=== PATIENT | male | born 1980 | race Two or more races ===

== ENCOUNTER → 2017-06-06 | Outpatient (CLI) | payer OTHER ==
[~2017-06-06] MED LIST: IOHEXOL 240 MG/ML 50ML VIAL. ONE; IOHEXOL 240 MG/ML 50ML VIAL. PO ONE; IOHEXOL 300 MG/ML 75 ML VIAL. IV ONE; IOHEXOL 300 MG/ML 75 ML VIAL. ONE
--- NOTE | 2017-06-06 15:27 | RAD ---
Indication rectal bleeding. Hematuria. Axial images through the abdomen and pelvis were obtained. A limited amount of oral contrast was administered. IV. Initial non-IV contrast images were obtained. Subsequently contrast images were obtained. Approximately 75 cc of Omnipaque 300 was administered. Note is made of a previous examination September 02, 2012. The lung bases are clear. Tubing, probably reflecting ELEVATOR SERVICE TECHNICIAN shunt tubing is noted. There is fatty infiltration of the liver. A focal mass lesion in the liver as is not seen. The spleen appears unremarkable. There is a small hiatus hernia. The pancreas appears normal. There are no adrenal masses. No renal mass is seen on either side. There are extrarenal pelves bilaterally. There is mild hydroureter, particularly involving the proximal portion of the kidneys. This is likely secondary to a moderately distended urinary bladder. A small bladder diverticulum is noted off the left fundus. A mass inflammatory process or acute finding within the abdomen is not seen. IMPRESSION: No acute findings seen in the abdomen or pelvis. Extrarenal pelves bilaterally and mild bilateral hydroureter likely secondary to distended urinary bladder. Fatty infiltration of the liver. PQRS Compliance Statement: One or more of the following individualized dose reduction techniques were utilized for this examination: 1. Automated exposure control 2. Adjustment of the mA and/or kV according to patient size 3. Use of iterative reconstruction technique
== END | disposition home or self-care (01) ==
LOC: CT 12:37
PROVIDERS: ATTEND Family Medicine
DX: N32.3 Diverticulum of bladder (principal); K44.9 Diaphragmatic hernia without obstruction or gangrene; K76.0 Fatty (change of) liver, not elsewhere classified; N13.4 Hydroureter; K62.5 Hemorrhage of anus and rectum
CPT/HCPCS: 74178; Q9966; Q9967

== ENCOUNTER → 2017-06-09 | Outpatient (CLI) | payer OTHER ==
--- NOTE | 2017-06-09 17:06 | RAD ---
Indication: Dyspnea on exertion. Time of exam 1657 hours. Correlation is made with prior study from 09/05/2012. The heart size is stable. The lungs are clear. Pulmonary vascularity is normal. No infiltrate, effusion or pneumothorax is seen. Tubing overlies bilateral hemithoraces. Impression: No acute cardiopulmonary process is detected.
== END ==
LOC: RAD 16:32
PROVIDERS: ATTEND Specialist
DX: R06.9 Unspecified abnormalities of breathing (principal)
CPT/HCPCS: 71020

== ENCOUNTER → 2017-08-01 | Outpatient (CLI) | payer OTHER ==
[~2017-08-01] MED LIST changes: -IOHEXOL 240 MG/ML 50ML VIAL. ONE; -IOHEXOL 240 MG/ML 50ML VIAL. PO ONE; -IOHEXOL 300 MG/ML 75 ML VIAL. ONE
== END | disposition home or self-care (01) ==
LOC: CT 12:42
PROVIDERS: ATTEND Internal Medicine Cardiovascular Disease
DX: Z53.8 Procedure and treatment not carried out for other reasons (principal)
CPT/HCPCS: Q9967

== ENCOUNTER → 2017-08-11 | Outpatient (CLI) | payer OTHER ==
--- NOTE | 2017-08-11 14:50 | RAD ---
INDICATION: DYSPNEA COMPARISON: 06/09/2017 FINDINGS: 2 views of chest obtained. Cardiac silhouette is mildly prominent in size but similar to prior. Repeat demonstration of tubing coursing down the chest bilaterally. No definite new region of focal airspace consolidation. IMPRESSION: No focal airspace consolidation or edema.
== END | disposition home or self-care (01) ==
LOC: DXRAD 13:22
PROVIDERS: ATTEND Internal Medicine Cardiovascular Disease
DX: R06.09 Other forms of dyspnea (principal)
CPT/HCPCS: 71046

== ENCOUNTER → 2017-08-15 | Outpatient (CLI) | payer OTHER ==
--- NOTE | 2017-08-15 15:10 | RAD ---
CT pulmonary angiogram with intravenous contrast History: Shortness of breath on exertion. Comparison: None. Technique: CT angiogram of the chest with attention to the pulmonary arteries was performed after the administration of intravenous contrast, 62 mL Omnipaque-300. Axial 2-D reconstructions were obtained. Coronal 3-D MIPS were obtained of the chest. Exposure: One or more of the following individualized dose reduction techniques were utilized for this examination: 1. Automated exposure control 2. Adjustment of the mA and/or kV according to patient size 3. Use of iterative reconstruction technique Findings: There is poor opacification of pulmonary arteries. No central pulmonary embolism is identified. Cannot evaluate for lobar or smaller pulmonary embolism. Trachea and mainstem bronchi appear patent. Visualized thyroid appears symmetric. No acute airspace disease is identified. No pneumothorax or pleural effusion is seen. No mediastinal lymphadenopathy is seen. Thoracic aorta has normal caliber and is without evidence of dissection.. Heart and pericardium are unremarkable. Anterior chest subcutaneous soft tissues demonstrate vertical linear densities, may be WORKSHOP MANAGER shunts. Severe fatty liver disease is seen. Impression: 1. Significantly limited examination. No central pulmonary embolism is identified. Cannot evaluate for lobar or smaller pulmonary embolism. 2. No acute abnormality identified in the chest. Electronically signed by: Benjamin Bailey MD (08/15/2017 3:07 PM) [place] [id number]
== END | disposition home or self-care (01) ==
LOC: CT 13:16
PROVIDERS: ATTEND Internal Medicine Cardiovascular Disease
DX: R06.09 Other forms of dyspnea (principal)
CPT/HCPCS: 71275

== ENCOUNTER → 2017-08-25 | Outpatient (CLI) | payer OTHER | END | disposition home or self-care (01) | LOC: LAB 14:18 | PROVIDERS: ATTEND Internal Medicine Cardiovascular Disease | DX: R00.2 Palpitations (principal) | CPT/HCPCS: 84443 ==

== ENCOUNTER 2018-11-19 11:40 | Inpatient (IN) | payer OTHER ==
[~2018-11-19] VITALS: Ht 167.6 cm; Wt 101.2 kg
--- NOTE | 2018-11-19 12:13 | RAD ---
AP chest, 11/19/2018: HISTORY: Shortness of breath Comparison is made to a study from 08/11/2017. A left-sided transvenous pacemaker has been inserted with 2 leads extending into the right heart. Tubing overlying both sides of the chest is again noted, most likely represent TODDLER NANNY shunt tubes. The heart size and pulmonary vascularity are normal. No pulmonary infiltrate is seen. There is no evidence of pleural fluid. IMPRESSION: No acute cardiopulmonary abnormality is detected. Electronically signed by: Michael De Guzman MD (11/19/2018 12:11 PM) [facility]
--- NOTE | 2018-11-19 12:24 | PHYS DOC ---
Past History Past Medical History: UTI, Other Past Surgical History: Other Alcohol Use: None Drug Use: None Adult General Chief Complaint Chief Complaint: CHEST PAIN [facility] HPI 38-year-old male presents with chest pain and palpitations. The patient states that after he woke up around 7 AM he began to have a feeling of his heart racing and central chest pressure. The pressure was a 5 out of 10. It has improved at this time, but is intermittent. Patient states that it hurts worse with deep breathing. He does feel short of breath but denies diaphoresis. The patient has an on demand pacemaker. He has a history of spina bifida. At this time, the patient states he just feels weak overall and he has some chest pain with breathing. Patient also seemed to have a right-sided facial droop prior to EMS arrival. This was confirmed by his family which accompany him. This has resolved at this time. Patient denies headache. He has CLIENT TECHNOLOGIES SPECIALIST shunt on the right knee on the left. Patient measured a fever of 102 at home, but had normal temperature in the ED. He did not take any medications for his fever. Review of Systems Review of Systems Constitutional: Fever, fatigue.[] Eyes: Denies change in visual acuity, redness, or eye pain [] HENT: Denies nasal congestion or sore throat [] Respiratory: Shortness of breath. Denies cough. [] Cardiovascular: No additional information not addressed in HPI [] GI: Denies abdominal pain, nausea, vomiting, bloody stools or diarrhea [] : Denies dysuria or hematuria [] Musculoskeletal: Denies back pain or joint pain [] Integument: Denies rash or skin lesions [] Neurologic: Denies headache, focal weakness or sensory changes [] Endocrine: Denies polyuria or polydipsia [] All other systems were reviewed and found to be within normal limits, except as documented in this note. Allergies Allergies Allergies Coded Allergies Type Severity Reaction Last Updated Verified amoxicillin Allergy Unknown 11/19/18 Yes cefaclor Allergy Unknown 11/19/18 Yes latex Allergy Unknown 11/19/18 Yes Physical Exam Physical Exam Constitutional: Well developed, well nourished, no acute distress, non-toxic appearance. [] HENT: Normocephalic, atraumatic, bilateral external ears normal, oropharynx moist, no oral exudates, nose normal. [] Eyes: PERRLA, EOMI, conjunctiva normal, no discharge. [] Neck: Normal range of motion, no tenderness, supple, no stridor. [] Cardiovascular:Heart rate regular rhythm, no murmur [] Lungs & Thorax: Bilateral breath sounds clear to auscultation [] Abdomen: Bowel sounds normal, soft, no tenderness, no masses, no pulsatile masses. [] Skin: Warm, dry, no erythema, no rash. [] Back: No tenderness, no CVA tenderness. [] Extremities: No tenderness, no cyanosis, no clubbing, ROM intact, no edema. [] Neurologic: Alert and oriented X 3, normal motor function, normal sensory function, no focal deficits noted. [] Psychologic: Affect normal, judgement normal, mood concerned. [] Current Patient Data Vital Signs Vital Signs Date Time Temp Pulse Resp B/P (MAP) Pulse Ox O2 Delivery O2 Flow Rate FiO2 11/19/18 11:45 98.7 100 20 95 Room Air EKG EKG Sinus rhythm, rate 99, normal axis, no ST elevations or depressions.[] Radiology/Procedures Radiology/Procedures [] Impressions: AP chest, 11/19/2018: HISTORY: Shortness of breath Comparison is made to a study from 08/11/2017. A left-sided transvenous pacemaker has been inserted with 2 leads extending into the right heart. Tubing overlying both sides of the chest is again noted, most likely represent CLIENT TECHNOLOGIES SPECIALIST shunt tubes. The heart size and pulmonary vascularity are normal. No pulmonary infiltrate is seen. There is no evidence of pleural fluid. IMPRESSION: No acute cardiopulmonary abnormality is detected. Electronically signed by: Michael Andrade MD (11/19/2018 12:11 PM) [facility] DICTATED AND SIGNED BY: MICHAEL ANDRADE MD DATE: 11/19/18 1211 CC: NEENA NOYOLA DO; RODY BENITES MD ~ CT HEAD WO CONTRAST History: Facial droop this a.m., has since resolved, history of Chiari malformation Comparison: December 05, 2011 Technique: Noncontrast CT imaging was performed of the head. Exposure: One or more of the following individualized dose reduction techniques were utilized for this examination: 1. Automated exposure control 2. Adjustment of the mA and/or kV according to patient size 3. Use of iterative reconstruction technique. Findings: There is again right transparietal shunt with the tip terminating to the left of the midline in the region of the anterior left lateral ventricle. There is now left transfrontal shunt, tip terminating just to the right of midline in the anterior right lateral ventricle. There is no evidence of acute intracranial hemorrhage. 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 Left ventricle is smaller than previously, no evidence of hydrocephalus. There is no new intra-axial mass effect or midline shift. 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 Impression: 1. There are left transfrontal and right transparietal shunts as described, no evidence of hydrocephalus. Ventricles are small in size. 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 No acute intracranial abnormality is identified by CT. Electronically signed by: Ina Lynch MD (11/19/2018 12:38 PM) [id number] DICTATED AND SIGNED BY: INA LYNCH MD DATE: 11/19/18 1238 CC: NEENA NOYOLA DO; RODY BENITES MD ~ Course & Med Decision Making Course & Med Decision Making Pertinent Labs and Imaging studies reviewed. (See chart for details) The patient's chest x-ray is negative for acute findings. His labs are unremarkable. His troponin is negative. His head CT is negative for acute findings. He continues to have some chest discomfort. He has been given 324 of aspirin. The patient appears dry as well as give him some additional IV fluids and Zofran for his nausea. Follow with Dr. Benites and he has agreed to admit the patient for further management. [] Dragon Disclaimer Dragon Disclaimer This electronic medical record was generated, in whole or in part, using a voice recognition dictation system. Departure Departure: Impression: Primary Impression: Chest pain Condition: STABLE Referrals: RODY BENITES MD (PCP) Problem Qualifiers Primary Impression: Chest pain Chest pain type: chest pain on breathing Qualified Codes: R07.1 - Chest pain on breathing NEENA NOYOLA DO Nov 19, 2018 12:24
[2018-11-19 12:36] LABS: BASO # 0.1 x10^3/uL (0.0-0.2); BASO % 1 % (0-3); EOS % 0 % (0-3); HEMATOCRIT 46.5 % (39.0-53.0); HEMOGLOBIN 15.8 g/dL (13.0-17.5); LYMPH # 0.9 x10^3/uL (1.0-4.8); LYMPH % 6 % (24-48); MEAN CORPUSCULAR HEMOGLOBIN 30 pg (25-35); MEAN CORPUSCULAR HGB CONC 34 g/dL (31-37); MEAN CORPUSCULAR VOLUME 89 fL (79-100); MONO % 6 % (0-9); NEUT # 15.2 x10^3uL (1.8-7.7); NEUT % 88 % (31-73); PLATELET COUNT 239 x10^3/uL (140-400); RED BLOOD COUNT 5.22 x10^6/uL (4.30-5.70); RED CELL DISTRIBUTION WIDTH 12.9 % (11.5-14.5); WHITE BLOOD COUNT 17.2 x10^3/uL (4.0-11.0)
--- NOTE | 2018-11-19 12:41 | RAD ---
CT HEAD WO CONTRAST History: Facial droop this a.m., has since resolved, history of Chiari malformation Comparison: December 05, 2011 Technique: Noncontrast CT imaging was performed of the head. Exposure: One or more of the following individualized dose reduction techniques were utilized for this examination: 1. Automated exposure control 2. Adjustment of the mA and/or kV according to patient size 3. Use of iterative reconstruction technique. Findings: There is again right transparietal shunt with the tip terminating to the left of the midline in the region of the anterior left lateral ventricle. There is now left transfrontal shunt, tip terminating just to the right of midline in the anterior right lateral ventricle. There is no evidence of acute intracranial hemorrhage. 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 Left ventricle is smaller than previously, no evidence of hydrocephalus. There is no new intra-axial mass effect or midline shift. 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 Impression: 1. There are left transfrontal and right transparietal shunts as described, no evidence of hydrocephalus. Ventricles are small in size. 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 No acute intracranial abnormality is identified by CT. Electronically signed by: Kamron Lacey MD (11/19/2018 12:38 PM) [id number]
[2018-11-19 12:52] LABS: CALCIUM 9.4 mg/dL (8.5-10.1); CREATININE 1.1 mg/dL (0.7-1.3); GFR 74.9; POTASSIUM 3.8 mmol/L (3.5-5.1); TOTAL BILIRUBIN 0.8 mg/dL (0.2-1.0); TOTAL PROTEIN 8.2 g/dL (6.4-8.2)
[2018-11-19 13:10] LABS: BILIRUBIN,URINE NEG (NEG); CLARITY,URINE HAZY; COLOR,URINE YELLOW; GLUCOSE,URINE NEG (NEG)
[2018-11-19 13:11] LABS: BACTERIA,URINE FEW /HPF (0-FEW); NITRITE,URINE NEG (NEG); SQUAMOUS EPITHELIAL CELL,UR OCC /LPF; UROBILINOGEN,URINE 0.2 mg/dL (0.2 mg/dL)
[2018-11-19 13:21] LABS: % BANDS 2 % (0-9); % LYMPHS 6 % (24-48); % MONOS 7 % (0-10); % SEGS 85 % (35-66)
[2018-11-19 13:22] LABS: PLT ESTIMATE ADEQUATE (ADEQUATE)
[2018-11-19] MEDS ORDERED: IV NORMAL SALINE 1,000ML 1,000 ML IV ONE (14:00)
[2018-11-19] MEDS ORDERED: LIDO:MAALOX 1:1 20 ML SINGLE DOSE. PO ONE (14:00)
[2018-11-19] MEDS ORDERED: ONDANSETRON PF 4 MG/2 ML VIAL. IV PRN ×2 (14:00→20:30)
[2018-11-19] MEDS ORDERED: NITROGLYCERIN SUBLINGUAL 0.4 MG BOTTLE OF 25. SL PRN (14:00)
[2018-11-19] MEDS ORDERED: ONDANSETRON PF 4 MG/2 ML VIAL. IV ONE (14:00)
[2018-11-19] MEDS ORDERED: ASPIRIN 81 MG TAB.CHEW PO ONE (14:00)
[2018-11-19 14:28] LABS: INFLUENZA A PATIENT NEGATIVE (NEGATIVE); INFLUENZA B PATIENT NEGATIVE (NEGATIVE)
--- NOTE | 2018-11-19 14:47 | EKG ---
[address] [address] Test Date: 2018-11-19 Test Time: 12:00:17 Pat Name: [address] Department: Room: Gender: M Regulatory Coordinator: : 1980 Requested By: NEENA NOYOLA Order Number: [id number] Reading MD: Apollo Carlos Measurements Intervals [place] Rate: 99 P: 27 IA: 188 QRS: 70 QRSD: 92 T: 28 QT: 308 QTc: 395 Interpretive Statements SINUS RHYTHM Electronically Signed On 11-26-2018 12:59:08 CDT by Apollo Carlos
[2018-11-19 16:07] VITALS: BP 115/79
[2018-11-19] MEDS ORDERED: PANT40TA5 PO (18:37)
[2018-11-19 19:57] VITALS: BP_SYST 136
[2018-11-19 19:59] VITALS: BP 128/63
[2018-11-19] MEDS ORDERED: HYDROcodone/APAP 5/325MG 1 TAB TABLET PO PRN (20:15)
[2018-11-19] MEDS ORDERED: VANCOMYCIN PER PHARMACY MC PRN (20:30)
[2018-11-19] MEDS ORDERED: ACETAMINOPHEN 500 MG TABLET PO PRN (20:30)
[2018-11-19] MEDS ORDERED: ZOLPIDEM 5 MG TABLET. PO PRN (20:30)
[2018-11-19 23:00] VITALS: BP 132/78
[2018-11-20 06:06] VITALS: BP 119/72
--- NOTE | 2018-11-20 08:56 | PDOC2 ---
CONSULT Date of Admission DATE: 11/20/18 TIME: 08:52 Reason for Consult: CP Problem List Problems Medical Problems: (1) Chest pain Status: Acute History of Present Illness Mr Booth is a 38 year old male with history of spina bifida, GERD and urinary retention with self cath, presented to the ED with complaints of chest pain, and fever. He describes pain in his chest, center and right and left sternal borders that started yesterday. Pain was worse with movement and deep inspiration. He also reported a fever so decided to present for evaluation and was admitted for evaluation and treatment. Consult was called to evaluate chest pain. He reports that his pain is significantly improved today but still occurs with deep inspiration. He also reports increased pain with palpation of chest wall. He denies any congestive symptoms, palpitations, lightheadedness or syncope. He denies any symptoms of infection other than fever at home. He was apparently afebrile in the ED Past Medical History hearing loss right ear spina bifida GERD urinary retention with self cath Past Surgical History: Tonsillectomy, Other (left transfrontal and right transparietal shunts) Family History: Cancer, Diabetes, Other (atrial fibrillation) Social History non smoker, no etoh or illicit drugs Current Medications Current Medications Aspirin (Children'S Aspirin) 324 mg 1X ONCE PO Last administered on 11/19/18at 14:09; Start 11/19/18 at 14:00; Stop 11/19/18 at 14:01; Status DC Sodium Chloride 1,000 ml @ 1,000 mls/hr 1X ONCE IV Last administered on at 14:06; Start 11/19/18 at 14:00; Stop 11/19/18 at 14:59; Status DC Ondansetron HCl (Zofran) 4 mg 1X ONCE IV Last administered on 11/19/18at 14:08 ; Start 11/19/18 at 14:00; Stop 11/19/18 at 14:01; Status DC Multi-Ingredient Mouthwash/Gargle (Gi Cocktail) 20 ml 1X ONCE PO Last administered on 11/19/18at 14:11; Start 11/19/18 at 14:00; Stop 11/19/18 at 14:01 ; Status DC Ondansetron HCl (Zofran) 4 mg PRN Q4HRS PRN IV NAUSEA/VOMITING; Start 11/19/18 at 14:00; Stop 11/20/18 at 13:59 Nitroglycerin (Nitrostat) 0.4 mg PRN Q5MIN PRN SL CHEST PAIN; Start 11/19/18 at 14:00; Stop 11/20/18 at 13:59 Acetaminophen/ Hydrocodone Bitart (Lortab 5/325) 1 tab PRN Q6HRS PRN PO PAIN Last administered on 11/19/18at 21:00; Start 11/19/18 at 20:15 Vancomycin HCl (Vanco Per Pharmacy) 1 each PRN DAILY PRN MC SEE COMMENTS; Start 11/19/18 at 20:30 Levofloxacin/ Dextrose 150 ml @ 150 mls/hr Q24H IV Last administered on at 21:00; Start 11/19/18 at 21:00 Pantoprazole Sodium (Protonix) 40 mg DAILYAC PO ; Start 11/20/18 at 07:30 Ondansetron HCl (Zofran) 4 mg PRN Q6HRS PRN IV NAUSEA/VOMITING; Start 11/19/18 at 20:30 Acetaminophen (Tylenol) 500 mg PRN Q6HRS PRN PO PAIN / TEMP; Start 11/19/18 at 20:30 Zolpidem Tartrate (Ambien) 5 mg PRN QHS PRN PO INSOMNIA; Start 11/19/18 at 20: 30 Vancomycin HCl 2 gm/Sodium Chloride 500 ml @ 250 mls/hr 1X ONCE IV ; Start at 09:00; Stop 11/20/18 at 10:59 Vancomycin HCl 1.5 gm/Sodium Chloride 500 ml @ 250 mls/hr Q12H IV ; Start 11/20 at 21:00 Active Scripts Active Reported Pantoprazole Sodium 40 Mg Tablet. 1 Tab PO DAILY06 Allergies: Coded Allergies: amoxicillin (Verified Allergy, Unknown, 11/19/18) cefaclor (Verified Allergy, Unknown, 11/19/18) latex (Verified Allergy, Unknown, 11/19/18) Review of System as per HPI or negative General: Alert, Oriented X3, Cooperative, No acute distress HEENT: Atraumatic, Mucous membr. moist/pink Lungs: Clear to auscultation, Normal air movement Heart: Normal S1, Normal S2, Other (no gallops, clicks or rubs) Abdomen: Normal bowel sounds, Soft, No tenderness Extremities: No cyanosis, No edema, Normal pulses Neuro: Normal speech, Strength at 5/5 X4 ext Psych/Mental Status: Mood NL VITALS Vital Signs Date Time Temp Pulse Resp B/P (MAP) Pulse Ox O2 Delivery O2 Flow Rate FiO2 11/20/18 06:06 99.5 88 20 119/72 (88) 94 11/20/18 01:22 Room Air Labs Laboratory Tests Test 11/19/18 12:20 11/19/18 12:40 11/19/18 14:01 11/19/18 18:25 White Blood Count 17.2 x10^3/uL (4.0-11.0) Red Blood Count 5.22 x10^6/uL (4.30-5.70) Hemoglobin 15.8 g/dL (13.0-17.5) Hematocrit 46.5 % (39.0-53.0) Mean Corpuscular Volume 89 fL (79-100) Mean Corpuscular Hemoglobin 30 pg (25-35) Mean Corpuscular Hemoglobin Concent 34 g/dL (31-37) Red Cell Distribution Width 12.9 % (11.5-14.5) Platelet Count 239 x10^3/uL (140-400) Neutrophils (%) (Auto) 88 % (31-73) Lymphocytes (%) (Auto) 6 % (24-48) Monocytes (%) (Auto) 6 % (0-9) Eosinophils (%) (Auto) 0 % (0-3) Basophils (%) (Auto) 1 % (0-3) Neutrophils # (Auto) 15.2 x10^3uL (1.8-7.7) Lymphocytes # (Auto) 0.9 x10^3/uL (1.0-4.8) Monocytes # (Auto) 1.0 x10^3/uL (0.0-1.1) Eosinophils # (Auto) 0.0 x10^3/uL (0.0-0.7) Basophils # (Auto) 0.1 x10^3/uL (0.0-0.2) Segmented Neutrophils % 85 % (35-66) Band Neutrophils % 2 % (0-9) Lymphocytes % 6 % (24-48) Monocytes % 7 % (0-10) Platelet Estimate Adequate (ADEQUATE) Large Platelets Occ Sodium Level 137 mmol/L (136-145) Potassium Level 3.8 mmol/L (3.5-5.1) Chloride Level 101 mmol/L (98-107) Carbon Dioxide Level 26 mmol/L (21-32) Anion Gap 10 (6-14) Blood Urea Nitrogen 14 mg/dL (8-26) Creatinine 1.1 mg/dL (0.7-1.3) Estimated GFR (Cockcroft-Gault) 74.9 BUN/Creatinine Ratio 13 (6-20) Glucose Level 114 mg/dL (70-99) Calcium Level 9.4 mg/dL (8.5-10.1) Total Bilirubin 0.8 mg/dL (0.2-1.0) Aspartate Amino Transf (AST/SGOT) 26 U/L (15-37) Alanine Aminotransferase (ALT/SGPT) 59 U/L (16-63) Alkaline Phosphatase 76 U/L (46-116) Troponin I Quantitative < 0.017 ng/mL (0-0.055) < 0.017 ng/mL (0-0.055) Total Protein 8.2 g/dL (6.4-8.2) Albumin 4.0 g/dL (3.4-5.0) Albumin/Globulin Ratio 1.0 (1.0-1.7) Urine Collection Type Unknown Urine Color Yellow Urine Clarity Hazy Urine pH 8.0 Urine Specific [place] 1.015 Urine Protein Neg (NEG-TRACE) Urine Glucose (UA) Neg mg/dL (NEG) Urine Ketones (Stick) Neg mg/dL (NEG) Urine Blood Trace (NEG) Urine Nitrite Neg (NEG) Urine Bilirubin Neg (NEG) Urine Urobilinogen Dipstick 0.2 mg/dL (0.2 mg/dL) Urine Leukocyte Esterase Small (NEG) Urine RBC 6-10 /HPF (0-2) Urine WBC 5-10 /HPF (0-4) Urine Squamous Epithelial Cells Occ /LPF Urine Bacteria Few /HPF (0-FEW) Influenza Type A (Rapid) Negative (NEGATIVE) Influenza Type B (Rapid) Negative (NEGATIVE) Test 11/19/18 20:30 Troponin I Quantitative < 0.017 ng/mL (0-0.055) Images CT head - Impression: 1. There are left transfrontal and right transparietal shunts as described, no evidence of hydrocephalus. Ventricles are small in size. 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 No acute intracranial abnormality is identified by CT. CXR - IMPRESSION: No acute cardiopulmonary abnormality is detected. EKG - sinus rhythm, no acute ischemic changes Assessment/Plan 1. chest pain, atypical, ME ruled out. EKG without acute ischemic changes. Check echo, lipids, consider outpatient MPI. If not acute abn on echo ok for discharge home with outpatient follow up. 2. UTI- per PCP 3. PPM in place - interrogation. 4. TIA - neuro consulted ALICIA RATLIFF FINISH GRINDER Nov 20, 2018 08:56
[2018-11-20] MEDS ORDERED: VANCOMYCIN 2 GM in IV NORMAL SALINE 500ML 500 ML IV ONE (09:00)
[2018-11-20] MEDS: PANTOPRAZOLE 40 MG TABLET. PO SCH (09:11)
--- NOTE | 2018-11-20 09:57 | CARD ---
MR#: [id number] Date of Study: 11/20/2018 Ordering Physician: FREDDY HEART, Referring Physician: RODY BENITES, Tech: Shelia Bolden RDCS APPROVED REPORT EXAM: Two-dimensional and M-mode echocardiogram with Doppler and color Doppler. Other Information Quality : Good INDICATION Chest Pain Surgery/Intervention Pacemaker: Date: 2017 2D DIMENSIONS RVDd3.0 (2.9-3.5cm)Left Atrium(2D)3.9 (1.6-4.0cm) IVSd1.1 (0.7-1.1cm)Aortic Root(2D)2.8 (2.0-3.7cm) LVDd5.0 (3.9-5.9cm)LVOT Diameter2.1 (1.8-2.4cm) PWd1.1 (0.7-1.1cm)LVDs3.2 (2.5-4.0cm) FS (%) 35.9 %SV76.2 ml LVEF(%)65.2 (>50%) Aortic Valve AoV Peak Terry.95.8cm/sAoV VTI16.1cm AO Peak GR.3.7mmHgAO Mean GR.2mmHg IZZY (VTI)2.99cm2 Mitral Valve MV E Ospfvyon38.8cm/sMV DECEL [id number] MV A Edtkorqi14.8cm/sE/A Ratio1.1 LEFT VENTRICLE The left ventricle is normal size. There is normal left ventricular wall thickness. The left ventricu lar systolic function is normal. The Ejection Fraction is 60-65%. There is normal LV segmental wall m otion. The left ventricular diastolic function and filling is normal for age. RIGHT VENTRICLE The right ventricle is normal size. The right ventricular systolic function is normal. ATRIA The left atrium size is normal. The right atrium size is normal. The interatrial septum is intact wit h no evidence for an atrial septal defect or patent foramen ovale as noted on 2-D or Doppler imaging. AORTIC VALVE The aortic valve is normal in structure and function. Doppler and Color Flow revealed no significant aortic regurgitation. There is no significant aortic valvular stenosis. MITRAL VALVE The mitral valve is normal in structure and function. There is no evidence of mitral valve prolapse. There is no mitral valve stenosis. Doppler and Color-flow revealed trace mitral regurgitation. TRICUSPID VALVE The tricuspid valve is normal in structure and function. Doppler and Color Flow revealed no tricuspid valve regurgitation noted. There is no tricuspid valve stenosis. PULMONIC VALVE The pulmonic valve is not well visualized. Doppler and Color Flow revealed no pulmonic valvular regur gitation. There is no pulmonic valvular stenosis. GREAT VESSELS The aortic root is normal in size. The ascending aorta is normal in size. The IVC is normal in size a nd collapses >50% with inspiration. PERICARDIAL EFFUSION There is no evidence of significant pericardial effusion. Critical Notification Critical Value: No <Conclusion> The left ventricular systolic function is normal. The Ejection Fraction is 60-65%. There is normal LV segmental wall motion. Trace mitral regurgitation. There is no evidence of significant pericardial effusion. Signed by : Apollo Carlos, Electronically Approved : 11/20/2018 09:56:45
[2018-11-20 10:58] VITALS: BP 117/72
[2018-11-20 15:21] VITALS: BP 126/75
--- NOTE | 2018-11-20 16:15 | EKG ---
[address] [address] Test Date: 2018-11-20 Test Time: 11:43:03 Pat Name: [address] Department: Room: 119 A Gender: M College Admissions Counselor: RYLIE : 1980 Requested By: RODY BENITES Order Number: [id number] Reading MD: Apollo Carlos Measurements Intervals [place] Rate: 81 P: 0 [place]: 194 QRS: 51 QRSD: 92 T: 27 QT: 346 QTc: 402 Interpretive Statements SINUS RHYTHM NORMAL ECG Electronically Signed On 11-26-2018 13:05:34 CDT by Apollo Carlos
[2018-11-20 19:12] VITALS: BP 147/87
--- NOTE | 2018-11-20 19:26 | HP ---
ADMIT DATE: 11/20/2018 HISTORY OF PRESENT ILLNESS: A 38-year-old male with a history of cerebral palsy. The patient noted his heart was racing, had chest pressure 5/10. He knows he had deep breathing. Denies diaphoresis, history of spina bifida, feels weak all over, chest pain, elevated temperature of 102, also had an elevated white count of 17,000, 6-10 red blood cells in his urine. The patient was admitted for possible SIRS. Further evaluation as treated with IV antibiotic therapy. He did running temperature of 99.8 along with his pulse of 108. PAST MEDICAL HISTORY: Includes spina bifida. 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 He has had GERD, genital urinary disorders, multiple urinary retention and self caths himself. PAST MEDICAL HISTORY: Positive for diabetes, cancer of the genital organs, chronic atrial fibrillation. ALLERGIES: AMOXICILLIN, CEFACLOR, and LATEX. MEDICATIONS: Reconciled. Apparently, he only takes one Protonix 40 mg a day. FAMILY HISTORY: Mother with diabetes and AFib, father with cancer of the genital organs probably prostate. SOCIAL HISTORY: The patient is a full code. Denies smoking, alcohol or drug use. REVIEW OF SYSTEMS: The patient denies any recent weight loss, weight gain, change in bowel habits. Denies any headaches, visual changes, blurred vision, double vision. Denies chest pain, shortness of breath. Does have problems with abdominal pain, problems on urination. Neurologically, the patient is stable. Does have occasional possible seizure activity and is to be evaluated. PHYSICAL EXAMINATION: GENERAL: This is a pleasant white male in moderate amount of distress, cerebral palsy. VITAL SIGNS: Blood pressure 120/72, respiratory rate 20, pulse 80, afebrile, temperature of 99.5. HEENT: The patient's head was atraumatic, normocephalic. Eyes: PERRLA without jaundice. The mouth and throat were normal. NECK: Supple, no JVD, or thyromegaly. LUNGS: Diminished throughout, poor movement of air. CARDIOVASCULAR: Regular sinus rhythm, S1, S2. ABDOMEN: Soft, nontender. EXTREMITIES: No clubbing, cyanosis or edema. NEUROLOGIC: The patient was alert and oriented x 3. Speech is fluent, spontaneous and appropriate. Cranial nerves 2-12 grossly intact. The patient will be admitted for further evaluation and treatment. IMPRESSION: Chest pain, leukocytosis, spina bifida, urinary tract infection, possible transient ischemic attack. PLAN: As above. Continue to monitor the patient accordingly, make further evaluation on him. Continue on antibiotics for elevated white count and high risk for infection. RODY BENITES MD DR: HAYLEY/inocencia JOB#: [id number] / [id number]
[2018-11-20] MEDS: LACTOBACILLUS RHAMNOSUS GG 1 CAPSULE. PO SCH (20:37)
[2018-11-20 23:07] VITALS: BP 144/88
[2018-11-20] MEDS: VANCOMYCIN 1.5 GM in IV NORMAL SALINE 500ML 500 ML IV SCH (23:21)
--- NOTE | 2018-11-21 03:48 | CONS ---
DATE OF CONSULTATION: 11/20/2018 NEUROLOGICAL CONSULTATION HISTORY OF PRESENT ILLNESS: This is a 38-year-old, right-handed patient male, who has had a history of cerebral palsy and born with spina bifida, required placement of 2 shunt in his head, was admitted through Emergency Room today after he presented with chief complaint of a sudden onset of chest pain associated with shortness of breath and palpitations. He denies diaphoresis, nausea, vomiting or vertigo. The patient states he ran a fever of 102. He has been having intermittent urinary tract infections for several years, required catheterization. In fact, he has been on antibiotics for 10 days for his recurrent urinary tract infections prior to this admission. He also complains of intermittent numbness confined to the right side of the face and right upper extremity and also he describes recurrent spells of strange feeling in the head. On arrival to Emergency Room, head CT scan was performed and revealed no evidence of acute intracranial process, but it shows absence of corpus callosum. He denies history of seizure or any recent loss of consciousness and falls. PAST MEDICAL HISTORY: Significant for recurrent urinary tract infection, GERD, hearing loss. PAST SURGICAL HISTORY: Significant for tonsillectomy, status post bilateral left ventricular shunt placement, status post permanent pacemaker placement. FAMILY HISTORY: Mother had atrial fibrillation, diabetes mellitus and father had prostate cancer. SOCIAL HISTORY: The patient lives with his parents. He denies smoking, alcohol drinking, or illicit drug use. REVIEW OF SYSTEMS: A 10-point review of system was performed as mentioned above in history of present illness. MEDICATIONS: Current hospital medications include vancomycin, Protonix, levofloxacin, Ambien, Tylenol, Zofran. PHYSICAL EXAMINATION: GENERAL: Well-developed, well-nourished male, not in acute distress. VITAL SIGNS: Blood pressure 147/87, respiratory rate 16, pulse is 90, temperature 98.5, oxygen saturation 99% on room air. HEENT: Normocephalic, atraumatic, otherwise, unremarkable. NECK: Supple, negative for carotid bruit, lymphadenopathy or thyromegaly. LUNGS: Clear to A and P. CARDIOVASCULAR: Regular rhythm, normal S1, S2. There is no S3, S4, or murmur. ABDOMEN: Soft. Bowel sounds positive. EXTREMITIES: Negative for cyanosis, clubbing or pitting edema. NEUROLOGIC: Mental status: The patient is alert and oriented x 3. The speech is fluent. There is no language dysfunction. Memory, the patient recalls 2/3 immediately and after 1 and 3 minutes. Judgment and abstract thinking are normal. The patient denies hallucination or delusion. CRANIAL NERVES: Visual castano are full. The pupils are reactive to light and accommodation. The extraocular movements are intact. There is no nystagmus. There is no facial motor or sensory deficit. Hearing is slightly diminished bilaterally. The palate is elevated symmetrically. Sternocleidomastoid muscles are powerful bilaterally. The patient shrugs his shoulders symmetrically and protrudes his tongue in the midline without fasciculation or atrophy. MOTOR: No focal muscle bulk was seen. The tone is normal. The strength is 5/5 throughout. SENSORY EXAMINATION: Sensory examination revealed normal pinprick, light touch, vibratory and position senses. Deep tendon reflexes were symmetric and hypoactive with absent Achilles responses. Gait: The patient has abnormal gait, typical for cerebral palsy. 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 Echocardiogram revealed normal left ventricular systolic function with ejection fraction between 60% and 65% along with mitral regurgitation, otherwise, unremarkable. Chest x-ray revealed no evidence of acute cardiopulmonary process. LABORATORY DATA: CBC revealed white blood cells of 17,200, hemoglobin 15.8, hematocrit 46.5, platelet count 239,000. Chemistry reveals sodium of 137, potassium 3.8, chloride 101, CO2 of 26, BUN 14, creatinine 1.1, glucose 114, calcium 9.4. Liver enzymes are normal. Lipid profile revealed elevated LDL at 135 with total cholesterol of 191. Urinalysis: Small urinary leukocyte esterase with white blood cells of 5-10 and red blood cells of 6-10. IMPRESSION: 1. Chest pain, probably non-cardiac. Cardiology service is following. 2. Rule out transient ischemic attack. 3. Status post permanent pacemaker placement. 4. Possible transient ischemic attack. RECOMMENDATIONS: 1. Continue with current management initiated by Dr. Lewis. 2. Treat the underlying urinary tract infections. 3. Carotid Doppler study. 4. We will arrange for EEG on an outpatient basis. M Gabi DIAL MD DR: DAVID/inocencia JOB#: [id number] / [id number]
[2018-11-21 05:33] VITALS: BP 102/64
[2018-11-21 07:01] LABS: BASO % 1 % (0-3); EOS # 0.1 x10^3/uL (0.0-0.7); EOS % 1 % (0-3); HEMATOCRIT 41.8 % (39.0-53.0); HEMOGLOBIN 14.3 g/dL (13.0-17.5); LYMPH % 22 % (24-48); MEAN CORPUSCULAR HEMOGLOBIN 31 pg (25-35); MEAN CORPUSCULAR HGB CONC 34 g/dL (31-37); MEAN CORPUSCULAR VOLUME 91 fL (79-100); MONO # 0.9 x10^3/uL (0.0-1.1); MONO % 10 % (0-9); NEUT # 6.2 x10^3uL (1.8-7.7); NEUT % 67 % (31-73); PLATELET COUNT 191 x10^3/uL (140-400); RED BLOOD COUNT 4.62 x10^6/uL (4.30-5.70); RED CELL DISTRIBUTION WIDTH 13.2 % (11.5-14.5); WHITE BLOOD COUNT 9.2 x10^3/uL (4.0-11.0)
[2018-11-21 07:22] LABS: CALCIUM 8.6 mg/dL (8.5-10.1); CREATININE 0.9 mg/dL (0.7-1.3); GFR 94.4
[2018-11-21] MEDS: PANTOPRAZOLE 40 MG TABLET. PO SCH (07:44)
[2018-11-21] MEDS: LACTOBACILLUS RHAMNOSUS GG 1 CAPSULE. PO SCH ×2 (07:44→20:53)
[2018-11-21] MEDS: VANCOMYCIN 1.5 GM in IV NORMAL SALINE 500ML 500 ML IV SCH (07:53)
--- NOTE | 2018-11-21 08:38 | RAD ---
Carotid ultrasound, 11/20/2018: HISTORY: Facial drooping Duplex evaluation of the carotid arteries and neck was performed including grayscale, color-flow and spectral Doppler analysis. There is only minimal smooth plaquing at the carotid bifurcations. The peak systolic velocity in the right internal carotid artery is 72 cm per sec with an end-diastolic velocity of 33 cm/s and an internal carotid to common carotid artery ratio of 0.8. The peak systolic velocity in the left internal carotid artery is 86 cm per sec with an end-diastolic velocity of 43 cm/s and an internal carotid to common carotid artery ratio 1.2. These Doppler findings do not suggest significant stenosis. Antegrade flow is present in both vertebral arteries in the neck. IMPRESSION: No duplex evidence of a significant carotid stenosis in the neck. Note: Stenosis calculations for CT, MRA and conventional angiography are based upon determination of the distal ICA diameter in accordance with the NASCET methodology. Stenosis calculations for Doppler studies are derived from validated velocity criteria which are known to correlate with NASCET methodology of determining stenosis. Electronically signed by: Michael De Guzman MD (11/21/2018 8:35 AM) [facility]
--- NOTE | 2018-11-21 10:17 | PDOC ---
ALICIA RATLIFF PRINT PROJECT MANAGER 11/21/18 1017: PROGRESS NOTES Diagnosis Problem Problems Medical Problems: (1) Chest pain Status: Acute Assessment Problems Medical Problems: (1) Chest pain Status: Acute 1. chest pain, atypical - mi ruled out. normal EF and wall motion by echo. Continue RF reduction. OP follow up and consider MPI. 2. UTI- per PCP 3. PPM in place - interrogation reveals normal function, demand pacing, no arrhythmias. 4. TIA - neuro following Subjective no more chest pain, no dyspnea, no palpitations Objective Vital Signs Date Time Temp Pulse Resp B/P (MAP) Pulse Ox O2 Delivery O2 Flow Rate FiO2 11/21/18 08:03 Room Air 11/21/18 05:33 98.1 77 18 102/64 (77) 95 Intake and Output 11/21/18 06:59 Intake Total 2851.12 ml Output Total 2375 ml Balance 476.12 ml Intake Oral 1560 ml IV Total 1291.12 ml Output Urine Total 2375 ml Physical Exam gen: awake, alert, NAD CV: RRR, no gallops, clicks or rubs lungs: clear abd: soft, non tender, bowel sounds present ext: no edema, +pulses Review of Relevant I have reviewed the following items lucio (where applicable) has been applied. Labs Laboratory Tests Test 11/19/18 12:20 11/19/18 12:40 11/19/18 14:01 11/19/18 18:25 White Blood Count 17.2 x10^3/uL (4.0-11.0) Red Blood Count 5.22 x10^6/uL (4.30-5.70) Hemoglobin 15.8 g/dL (13.0-17.5) Hematocrit 46.5 % (39.0-53.0) Mean Corpuscular Volume 89 fL (79-100) Mean Corpuscular Hemoglobin 30 pg (25-35) Mean Corpuscular Hemoglobin Concent 34 g/dL (31-37) Red Cell Distribution Width 12.9 % (11.5-14.5) Platelet Count 239 x10^3/uL (140-400) Neutrophils (%) (Auto) 88 % (31-73) Lymphocytes (%) (Auto) 6 % (24-48) Monocytes (%) (Auto) 6 % (0-9) Eosinophils (%) (Auto) 0 % (0-3) Basophils (%) (Auto) 1 % (0-3) Neutrophils # (Auto) 15.2 x10^3uL (1.8-7.7) Lymphocytes # (Auto) 0.9 x10^3/uL (1.0-4.8) Monocytes # (Auto) 1.0 x10^3/uL (0.0-1.1) Eosinophils # (Auto) 0.0 x10^3/uL (0.0-0.7) Basophils # (Auto) 0.1 x10^3/uL (0.0-0.2) Segmented Neutrophils % 85 % (35-66) Band Neutrophils % 2 % (0-9) Lymphocytes % 6 % (24-48) Monocytes % 7 % (0-10) Platelet Estimate Adequate (ADEQUATE) Large Platelets Occ Sodium Level 137 mmol/L (136-145) Potassium Level 3.8 mmol/L (3.5-5.1) Chloride Level 101 mmol/L (98-107) Carbon Dioxide Level 26 mmol/L (21-32) Anion Gap 10 (6-14) Blood Urea Nitrogen 14 mg/dL (8-26) Creatinine 1.1 mg/dL (0.7-1.3) Estimated GFR (Cockcroft-Gault) 74.9 BUN/Creatinine Ratio 13 (6-20) Glucose Level 114 mg/dL (70-99) Calcium Level 9.4 mg/dL (8.5-10.1) Total Bilirubin 0.8 mg/dL (0.2-1.0) Aspartate Amino Transf (AST/SGOT) 26 U/L (15-37) Alanine Aminotransferase (ALT/SGPT) 59 U/L (16-63) Alkaline Phosphatase 76 U/L (46-116) Troponin I Quantitative < 0.017 ng/mL (0-0.055) < 0.017 ng/mL (0-0.055) Total Protein 8.2 g/dL (6.4-8.2) Albumin 4.0 g/dL (3.4-5.0) Albumin/Globulin Ratio 1.0 (1.0-1.7) Urine Collection Type Unknown Urine Color Yellow Urine Clarity Hazy Urine pH 8.0 Urine Specific Holden 1.015 Urine Protein Neg (NEG-TRACE) Urine Glucose (UA) Neg mg/dL (NEG) Urine Ketones (Stick) Neg mg/dL (NEG) Urine Blood Trace (NEG) Urine Nitrite Neg (NEG) Urine Bilirubin Neg (NEG) Urine Urobilinogen Dipstick 0.2 mg/dL (0.2 mg/dL) Urine Leukocyte Esterase Small (NEG) Urine RBC 6-10 /HPF (0-2) Urine WBC 5-10 /HPF (0-4) Urine Squamous Epithelial Cells Occ /LPF Urine Bacteria Few /HPF (0-FEW) Influenza Type A (Rapid) Negative (NEGATIVE) Influenza Type B (Rapid) Negative (NEGATIVE) Test 11/19/18 20:30 11/20/18 06:04 11/21/18 06:28 Troponin I Quantitative < 0.017 ng/mL (0-0.055) Triglycerides Level 66 mg/dL (0-150) Cholesterol Level 191 mg/dL (0-200) LDL Cholesterol, Calculated 135 mg/dL (0-100) VLDL Cholesterol, Calculated 13 mg/dL (0-40) Non-HDL Cholesterol Calculated 148 mg/dL (0-129) HDL Cholesterol 43 mg/dL (40-60) Cholesterol/HDL Ratio 4.0 Thyroid Stimulating Hormone (TSH) 0.508 uIU/mL (0.358-3.740) White Blood Count 9.2 x10^3/uL (4.0-11.0) Red Blood Count 4.62 x10^6/uL (4.30-5.70) Hemoglobin 14.3 g/dL (13.0-17.5) Hematocrit 41.8 % (39.0-53.0) Mean Corpuscular Volume 91 fL (79-100) Mean Corpuscular Hemoglobin 31 pg (25-35) Mean Corpuscular Hemoglobin Concent 34 g/dL (31-37) Red Cell Distribution Width 13.2 % (11.5-14.5) Platelet Count 191 x10^3/uL (140-400) Neutrophils (%) (Auto) 67 % (31-73) Lymphocytes (%) (Auto) 22 % (24-48) Monocytes (%) (Auto) 10 % (0-9) Eosinophils (%) (Auto) 1 % (0-3) Basophils (%) (Auto) 1 % (0-3) Neutrophils # (Auto) 6.2 x10^3uL (1.8-7.7) Lymphocytes # (Auto) 2.0 x10^3/uL (1.0-4.8) Monocytes # (Auto) 0.9 x10^3/uL (0.0-1.1) Eosinophils # (Auto) 0.1 x10^3/uL (0.0-0.7) Basophils # (Auto) 0.0 x10^3/uL (0.0-0.2) Sodium Level 140 mmol/L (136-145) Potassium Level 4.0 mmol/L (3.5-5.1) Chloride Level 106 mmol/L (98-107) Carbon Dioxide Level 25 mmol/L (21-32) Anion Gap 9 (6-14) Blood Urea Nitrogen 11 mg/dL (8-26) Creatinine 0.9 mg/dL (0.7-1.3) Estimated GFR (Cockcroft-Gault) 94.4 Glucose Level 89 mg/dL (70-99) Calcium Level 8.6 mg/dL (8.5-10.1) Microbiology 11/19/18 Urine Culture - Preliminary, Resulted 11/19/18 Urine Culture Result 1 (MARK) - Preliminary, Resulted Medications Current Medications Aspirin (Children'S Aspirin) 324 mg 1X ONCE PO Last administered on 11/19/18at 14:09; Start 11/19/18 at 14:00; Stop 11/19/18 at 14:01; Status DC Sodium Chloride 1,000 ml @ 1,000 mls/hr 1X ONCE IV Last administered on at 14:06; Start 11/19/18 at 14:00; Stop 11/19/18 at 14:59; Status DC Ondansetron HCl (Zofran) 4 mg 1X ONCE IV Last administered on 11/19/18at 14:08 ; Start 11/19/18 at 14:00; Stop 11/19/18 at 14:01; Status DC Multi-Ingredient Mouthwash/Gargle (Gi Cocktail) 20 ml 1X ONCE PO Last administered on 11/19/18at 14:11; Start 11/19/18 at 14:00; Stop 11/19/18 at 14:01 ; Status DC Ondansetron HCl (Zofran) 4 mg PRN Q4HRS PRN IV NAUSEA/VOMITING; Start 11/19/18 at 14:00; Stop 11/20/18 at 13:59; Status Cancel Nitroglycerin (Nitrostat) 0.4 mg PRN Q5MIN PRN SL CHEST PAIN; Start 11/19/18 at 14:00; Stop 11/20/18 at 13:59; Status DC Acetaminophen/ Hydrocodone Bitart (Lortab 5/325) 1 tab PRN Q6HRS PRN PO PAIN Last administered on 11/19/18at 21:00; Start 11/19/18 at 20:15 Vancomycin HCl (Vanco Per Pharmacy) 1 each PRN DAILY PRN MC SEE COMMENTS Last administered on 11/20/18at 12:47; Start 11/19/18 at 20:30 Levofloxacin/ Dextrose 150 ml @ 150 mls/hr Q24H IV Last administered on at 20:37; Start 11/19/18 at 21:00 Pantoprazole Sodium (Protonix) 40 mg DAILYAC PO Last administered on 11/21/18at 07:44; Start 11/20/18 at 07:30 Ondansetron HCl (Zofran) 4 mg PRN Q6HRS PRN IV NAUSEA/VOMITING; Start 11/19/18 at 20:30 Acetaminophen (Tylenol) 500 mg PRN Q6HRS PRN PO PAIN / TEMP; Start 11/19/18 at 20:30 Zolpidem Tartrate (Ambien) 5 mg PRN QHS PRN PO INSOMNIA; Start 11/19/18 at 20: 30 Vancomycin HCl 2 gm/Sodium Chloride 500 ml @ 250 mls/hr 1X ONCE IV Last administered on 11/20/18at 09:12; Start 11/20/18 at 09:00; Stop 11/20/18 at 10:59 ; Status DC Vancomycin HCl 1.5 gm/Sodium Chloride 500 ml @ 250 mls/hr Q12H IV Last administered on 11/21/18at 07:53; Start 11/20/18 at 21:00 Vancomycin HCl (Vancomycin Trough Level) 1 each 1X ONCE MC ; Start 11/21/18 at 20:30; Stop 11/21/18 at 20:31 Lactobacillus Rhamnosus (Culturelle) 1 cap BID PO Last administered on at 07:44; Start 11/20/18 at 21:00 Active Scripts Active Reported Pantoprazole Sodium 40 Mg Tablet.dr 1 Tab PO DAILY06 Vitals/I & O Vital Sign - Last 24 Hours 11/20/18 11/20/18 11/20/18 11/20/18 10:58 15:21 19:12 19:30 Temp 98.2 99.0 98.5 Pulse 86 93 90 Resp 20 20 16 B/P (MAP) 117/72 (87) 126/75 (92) 147/87 (107) Pulse Ox 93 96 99 O2 Delivery Room Air Room Air Room Air Room Air 11/20/18 11/21/18 11/21/18 23:07 05:33 08:03 Temp 99.1 98.1 Pulse 99 77 Resp 18 18 B/P (MAP) 144/88 (106) 102/64 (77) Pulse Ox 96 95 O2 Delivery Room Air Room Air Room Air Intake and Output 11/20/18 11/20/18 11/21/18 14:59 22:59 06:59 Intake Total 1121.12 ml 630 ml 1100 ml Output Total 1650 ml 725 ml Balance 1121.12 ml -1020 ml 375 ml FREDDY HEART MD 11/21/18 1606: PROGRESS NOTES Review of Relevant Pt. seen and examined. Agree with above ESCALATOR CONSTRUCTOR note. Supportive care. Thanks. Consider outpt MPI if persistent pain. ALICIA RATLIFF PRINT PROJECT MANAGER Nov 21, 2018 10:17 FREDDY HEART MD Nov 21, 2018 16:06
[2018-11-21 11:02] VITALS: BP 123/82
--- NOTE | 2018-11-21 13:35 | PN ---
DATE: 11/21/2018 SUBJECTIVE: The patient denies any recurrence of chest pain; however, on occasions, he complains of intermittent twitching of the face, arms and sometimes drooping of one side of his face. Currently, he denies any new medical or neurological complaints. He drinks and ate well. OBJECTIVE: GENERAL: A well-developed, well-nourished male, not in acute distress. VITAL SIGNS: Blood pressure 102/64, respiratory rate 18, pulse is 77 and regular, temperature 98.1, oxygen saturation is 95% on room air. HEENT: Normocephalic, atraumatic, otherwise unremarkable. NECK: Supple. Negative for carotid bruit, lymphadenopathy or thyromegaly. LUNGS: Clear to A and P. CARDIOVASCULAR: Regular rhythm, normal S1, S2. ABDOMEN: Soft. Bowel sounds positive. EXTREMITIES: Negative for cyanosis, clubbing or pitting edema. NEUROLOGIC: Mental status: The patient is alert and oriented x 3. Speech is fluent. There is no language dysfunction. Cranial nerves are intact. Motor Examination: No focal muscle bulk was seen. The tone is normal. The strength is 5/5 throughout. Sensory examination revealed diminished pinprick and light touch senses in patchy distributions in both upper and lower extremities. Deep tendon reflexes were symmetric and hypoactive with absent Achilles responses. Gait: The patient had cerebral palsy gait. DIAGNOSTIC DATA: Carotid Doppler study revealed no significant carotid stenosis. LABORATORY DATA: CBC revealed white blood cells of 9200, hemoglobin 14.3, hematocrit 41.8, platelet count 191,000. Chemistry: Sodium 140, potassium 4, chloride 106, CO2 of 25, BUN 11, creatinine 0.9, glucose is 89. TSH is normal. IMPRESSION: 1. Intermittent right facial drooping that is resolved. Etiology uncertain, rule out transient ischemic attack. 2. Intermittent twitching of the face or upper extremities. 3. Frequent urinary tract infections. 4. Chest pain -- resolved. 5. Cerebral palsy, status post pacemaker placement, status post 2 ESCROW MANAGER shunts. RECOMMENDATIONS: 1. Continue with current managements. 2. We will arrange for EEG to be done on an outpatient basis. M Gabi DIAL MD DR: DAVID/inocencia JOB#: [id number] / [id number]
[2018-11-21 14:47] VITALS: BP 130/87
--- NOTE | 2018-11-21 15:06 | PN ---
DATE: SUBJECTIVE: The patient in with urinary tract infection, significant. The patient has had problems with he has to self-cath himself. Consequently, he has been having what looks like a pseudomonal infection, got involved in his urinary system. Right now, we are waiting for culture and sensitivity reports. He has ALLERGIES TO PENICILLIN AND CEPHALOSPORIN. His white count has dropped from 17 down to 9. PHYSICAL EXAMINATION: VITAL SIGNS: Blood pressure 102/60, respiratory rate 18, pulse 70, afebrile. Pulse has been up in the upper 90s and 100s. LUNGS: Otherwise lungs clear. CARDIOVASCULAR: Stable. ABDOMEN: Soft, diffuse tenderness, but markedly improved. He has not had a bowel movement. Encouraged to keep walking around. EXTREMITIES: No clubbing, cyanosis, edema. NEUROLOGIC: Intact. IMPRESSION: Sepsis, pseudomonal urinary tract infection, spina bifida. PLAN: Continue to monitor the patient, IV antibiotic therapy, and try to get the reports back from the culture sensitivity. RODY BENITES MD DR: HAYLEY/inocencia JOB#: [id number] / [id number]
[2018-11-21 19:44] VITALS: BP 133/90
[2018-11-21 22:57] VITALS: BP 129/91
[2018-11-22 05:05] VITALS: BP 125/77
[2018-11-22] MEDS: PANTOPRAZOLE 40 MG TABLET. PO SCH (07:52)
[2018-11-22] MEDS: LACTOBACILLUS RHAMNOSUS GG 1 CAPSULE. PO SCH (07:52)
[2018-11-22] MEDS ORDERED: CIPR500T94 PO (08:32)
[2018-11-22 09:49] VITALS: BP 127/84
--- NOTE | 2018-11-22 12:11 | DS ---
DATE OF DISCHARGE: 11/22/2018 HOSPITAL COURSE: A 38-year-old gentleman with history of cerebral palsy, spina bifida. The patient does self catheterization, developed a urinary tract infection. The patient was quite ill when he came in with nausea, vomiting. White count was 17,000. The patient failed outpatient therapy, required inpatient IV antibiotic therapy and ____. The patient urine grew out a pseudomonas variety of aeruginosa and was sensitive to IV and oral antibiotics. Once that was found over, he was converted over from IV to oral antibiotics for pseudomonal infection. He made excellent progress. The patient's white count went down from 17 down to 9, hemoglobin 14, hematocrit 41. Electrolytes were normal as well as TSH. Cardiac enzymes negative. The patient was discharged home. He will follow up as an outpatient, given self catheterization instructions to minimize this again. IMPRESSION: Sepsis, spina bifida, urinary tract infection with pseudomonas, self catheterization. DISCHARGE INSTRUCTIONS: The patient will be monitored carefully, make further evaluation on him as an outpatient and make further assessment. RODY BENITES MD DR: HAYLEY/inocencia JOB#: [id number] / [id number]
--- NOTE | 2018-11-22 13:38 | PN ---
DATE: SUBJECTIVE: The patient denies any new medical or neurological complaints. He feels better. He eats and drinks well. He denies any urinary urgency or pain. OBJECTIVE: GENERAL: Well-developed, well-nourished male, not in acute distress. VITAL SIGNS: Blood pressure 125/77, respiratory rate 14, pulse is 71 regular, temperature 97.7, oxygen saturation 96% on room air. HEENT: Normocephalic, atraumatic, otherwise unremarkable. NECK: Supple. Negative for carotid bruit, lymphadenopathy or thyromegaly. LUNGS: Clear to A and P. CARDIOVASCULAR: Regular rate and rhythm. Normal S1, S2. ABDOMEN: Soft. Bowel sounds positive. EXTREMITIES: Negative for cyanosis, clubbing or pitting edema. NEUROLOGIC: Normal mental status and intact cranial nerves except for right lazy eye. Motor: No focal muscle bulk was seen. The tone was normal. The strength was 5/5 throughout. Sensory examination revealed diminished pinprick and light touch senses in patchy distributions in both lower and upper extremities. Deep tendon reflexes were symmetric and hypoactive with absent Achilles responses. Gait: The patient has a cerebral palsy gait. IMPRESSION: 1. Intermittent right facial drooping -- resolved ____ of uncertain etiology; however, carotid Doppler study is negative for significant carotid stenosis. 2. Frequent urinary tract infections, required self urinary catheterizations. 3. Cerebral palsy, status post pacemaker placement, status post 2 TIMBER CUTTER shunts. RECOMMENDATIONS: 1. Continue with current management, initiated by Dr. Lewis. 2. We will arrange for EEG on outpatient basis. M Gabi DIAL MD DR: DAVID/inocencia JOB#: [id number] / [id number]
== END 2018-11-22 13:13 | disposition home or self-care (01) | DRG 871 ==
LOC: ER 11:40 → 1 SOUTH 14:40
PROVIDERS: ADMIT Family Medicine; ATTEND Family Medicine
DX: A41.9 Sepsis, unspecified organism (principal); Q04.0 Congenital malformations of corpus callosum; N39.0 Urinary tract infection, site not specified; G45.9 Transient cerebral ischemic attack, unspecified; B96.5 Pseudomonas (aeruginosa) (mallei) (pseudomallei) as the cause of diseases classified elsewhere; G80.9 Cerebral palsy, unspecified; H91.91 Unspecified hearing loss, right ear; E11.9 Type 2 diabetes mellitus without complications; I48.2 Chronic atrial fibrillation; K21.9 Gastro-esophageal reflux disease without esophagitis; Q05.9 Spina bifida, unspecified; Z80.42 Family history of malignant neoplasm of prostate; Z83.3 Family history of diabetes mellitus; Z87.440 Personal history of urinary (tract) infections; Z88.0 Allergy status to penicillin; Z88.1 Allergy status to other antibiotic agents; Z95.0 Presence of cardiac pacemaker; Z98.2 Presence of cerebrospinal fluid drainage device
CPT/HCPCS: 36415; 70450; 71045; 80048; 80053; 80061; 81001; 84443; 84484; 85007; 85025; 87086; 87186; 87804; 93005; 93306; 93880; 96361; 96374; J1956; J2405; J3370; J7040; 99285-25; J7030

== ENCOUNTER 2019-11-14 17:06 | Inpatient (IN) | payer OTHER ==
[~2019-11-14] VITALS: Ht 167.6 cm; Wt 95.3 kg
[~2019-11-14 17:06] MED LIST changes: +CIPR500T94 PO; -IOHEXOL 300 MG/ML 75 ML VIAL. IV ONE; +PANT40TA5 PO
[2019-11-14] MEDS ORDERED: IV NORMAL SALINE 1,000ML 1,000 ML IV ONE (17:15)
[2019-11-14 17:43] LABS: BASO % 0 % (0-3); EOS % 0 % (0-3); HEMATOCRIT 46.6 % (39.0-53.0); HEMOGLOBIN 15.9 g/dL (13.0-17.5); LYMPH # 0.7 x10^3/uL (1.0-4.8); LYMPH % 4 % (24-48); MEAN CORPUSCULAR HEMOGLOBIN 31 pg (25-35); MEAN CORPUSCULAR HGB CONC 34 g/dL (31-37); MEAN CORPUSCULAR VOLUME 92 fL (79-100); MONO # 0.9 x10^3/uL (0.0-1.1); MONO % 6 % (0-9); NEUT # 13.5 x10^3uL (1.8-7.7); NEUT % 89 % (31-73); PLATELET COUNT 196 x10^3/uL (140-400); RED BLOOD COUNT 5.08 x10^6/uL (4.30-5.70); WHITE BLOOD COUNT 15.1 x10^3/uL (4.0-11.0)
[2019-11-14] MEDS ORDERED: ACETAMINOPHEN 500 MG TABLET PO ONE (17:45)
--- NOTE | 2019-11-14 17:49 | PHYS DOC ---
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 The patient was supposed to be directly admitted to the hospital for constipation and an abdominal complaint. When he got to the hospital to check-in, they found him to have an oral temperature of 103. The staff at the hospital was concerned and called the admitting physician. He recommended admitting the patient through the emergency room. An ambulance was called and the patient was brought from the hospital to the emergency room. He is on isolation. The patient was having nausea vomiting and constipation for the last 3 days. The fever seems to have started today. (NEENA NOYOLA DO) Review of Systems: Review of Systems: Constitutional: Fever Eyes: Denies change in visual acuity HENT: Denies nasal congestion or sore throat Respiratory: Denies cough or shortness of breath Cardiovascular: Denies chest pain or edema GI: Constipation. Denies abdominal pain, nausea, vomiting, bloody stools or diarrhea : Denies dysuria Musculoskeletal: Denies back pain or joint pain Integument: Denies rash Neurologic: Denies headache, focal weakness or sensory changes Endocrine: Denies polyuria or polydipsia Lymphatic: Denies swollen glands Psychiatric: Denies depression or anxiety (NEENA NOYOLA DO) Heart Score: Risk Factors: Risk Factors: DM, Current or recent (<one month) smoker, HTN, HLP, family history of CAD, obesity. Risk Scores: Score 0 - 3: 2.5% MACE over next 6 weeks - Discharge Home Score 4 - 6: 20.3% MACE over next 6 weeks - Admit for Clinical Observation Score 7 - 10: 72.7% MACE over next 6 weeks - Early Invasive Strategies (NEENA NOYOLA DO) HEART Score for Chest Pain: HEART Score for Chest Pain Response (Comments) Value History Slighlty/Non-Suspicious 0 Total 0 Current Medications: Current Meds: Current Medications Medications (Trade) Dose Ordered Sig/Poppy Start Time Stop Time Status Last Admin Dose Admin Acetaminophen (Tylenol) 1,000 mg 1X ONCE 11/14/19 17:45 11/14/19 17:46 11/14/19 17:22 1,000 MG Sodium Chloride 1,000 ml @ 1,000 mls/hr 1X ONCE 11/14/19 17:15 11/14/19 18:14 11/14/19 17:15 1,000 MLS/HR (NEENA NOYOLA DO) Allergies: Allergies: Allergies Coded Allergies Type Severity Reaction Last Updated Verified amoxicillin Allergy Intermediate 11/20/18 Yes cefaclor Allergy Intermediate 11/20/18 Yes latex Allergy Intermediate 11/20/18 Yes morphine Allergy Unknown Rash 11/14/19 Yes (NEENA NOYOLA DO) Physical Exam: PE: Constitutional: Well developed, well nourished, no acute distress, non-toxic appearance. [] HENT: Normocephalic, atraumatic, bilateral external ears normal, oropharynx moist, no oral exudates, nose normal. [] Eyes: PERRLA, EOMI, conjunctiva normal, no discharge. [] Neck: Normal range of motion, no tenderness, supple, no stridor. [] Cardiovascular:Heart rate regular rhythm, no murmur [] Lungs & Thorax: Bilateral breath sounds clear to auscultation [] Abdomen: Bowel sounds normal, soft, no tenderness, no masses, no pulsatile masses. [] Skin: Warm, dry, no erythema, no rash. [] Back: No tenderness, no CVA tenderness. [] Extremities: No tenderness, no cyanosis, no clubbing, ROM intact, no edema. [] Neurologic: Alert and oriented X 3, normal motor function, normal sensory function, no focal deficits noted. [] Psychologic: Affect normal, judgement normal, mood normal. [] (NEENA NOYOLA DO) Current Patient Data: Vital Signs: Vital Signs Date Time Temp Pulse Resp B/P (MAP) Pulse Ox O2 Delivery O2 Flow Rate FiO2 11/14/19 17:13 103.0 100 18 142/94 (110) 98 Room Air (NEENA NOYOLA DO) EKG: EKG: [] (NEENA NOYOLA DO) Radiology/Procedures: Radiology/Procedures: [] (NEENA NOYOLA DO) Course & Med Decision Making: Course & Med Decision Making Pertinent Labs and Imaging studies reviewed. (See chart for details) On arrival the patient had a fever of 103. We have given him a gram of Tylenol and started his work-up. All of his labs are pending. Preliminary look at his x-ray does not show any significant findings. I am signing the patient out to Dr. Payan at 1800. He will follow-up on the patient's work-up. The patient is most likely to be admitted as previously planned. We are testing him for COVID 19. The patient is at increased risk due to his chronic health problems. He has no known exposures but has been to the store a few times. [] (NEENA NOYOLA DO) Course & Med Decision Making Pt. admitted to for further eval. and tx. Impression: 1. Fever 2. Nausea and Vomiting 3. [id number] 4. Hyponatremia 133 5. Dehydration 6. UTI (ANGEL LUIS PAYAN MD) Dragon Disclaimer: Dragon Disclaimer: This electronic medical record was generated, in whole or in part, using a voice recognition dictation system. (NEENA NOYOLA DO) Departure Departure: Impression: Primary Impression: COVID-19 Disposition: ADMITTED INPATIENT Condition: GUARDED Referrals: RODY BENITES MD (PCP) COVID-19 Assessment COVID-19 Patient Risks: Age 65 or older: No Sign of co-morbidity: Yes Exp to person + for COVID: No Travel from affected area: No Lower respiratory symptoms: No Fever: Yes Comments: Use of PPE supplied, mask, hat,face shield,gown,gloves shoe, yellow gown. (ANGEL LUIS PAYAN MD) Dragon Disclaimer This chart was dictated in whole or in part using Voice Recognition software in a busy, high-work load, and often noisy Emergency Department environment. It may contain unintended and wholly unrecognized errors or omissions. (ANGEL LUIS PAYAN MD) NEENA NOYOLA DO Nov 14, 2019 17:49 ANGEL LUIS PAYAN MD Nov 14, 2019 19:23
[2019-11-14 17:55] LABS: CALCIUM 9.1 mg/dL (8.5-10.1); CREATININE 1.1 mg/dL (0.7-1.3); GFR 74.5; POTASSIUM 3.8 mmol/L (3.5-5.1)
[2019-11-14 17:58] LABS: ALBUMIN 4.2 g/dL (3.4-5.0); TOTAL PROTEIN 8.4 g/dL (6.4-8.2)
--- NOTE | 2019-11-14 18:08 | RAD ---
CHEST AP ONLY 11/14/2019 5:08 PM INDICATION: Fever, Covid19 COMPARISON: 11/19/2018 TECHNIQUE: Portable frontal view of the chest is provided. FINDINGS: The cardiomediastinal silhouette is within normal limits. Lungs are clear. Scratch that left chest wall cardiac device is noted in similar position. There are no significant pleural effusions. There is no pulmonary vascular congestion. No pneumothorax. No suspicious osseous abnormality. IMPRESSION: There is no acute cardiopulmonary process. Electronically signed by: Arleen Parra MD (11/14/2019 6:05 PM) DANNI
--- NOTE | 2019-11-14 18:10 | RAD ---
KUB 11/14/2019 5:16 PM INDICATION: Constipation COMPARISON: None available. TECHNIQUE: Supine views of the abdomen are provided. FINDINGS/ IMPRESSION: 1. There are 2 peritoneal shunt catheter is identified with the left-sided catheter terminating in the left midabdomen. The right-sided catheter terminates in the left lower quadrant. This catheter appears discontiguous at the level of the left L4 transverse process. 2. There are no dilated loops of small or large bowel. Paucity of small bowel gas limits evaluation. Overall, nonobstructive bowel gas pattern. Supine technique limits evaluation for pneumoperitoneum. No suspicious gender urinary calcifications are identified. 3. No suspicious osseous abnormality. Electronically signed by: Arleen Parra MD (11/14/2019 6:06 PM) DANNI
[2019-11-14 19:21] LABS: INFLUENZA A PATIENT NEGATIVE (NEGATIVE); INFLUENZA B PATIENT NEGATIVE (NEGATIVE)
[2019-11-14 19:35] LABS: BACTERIA,URINE MANY /HPF (0-FEW); BILIRUBIN,URINE NEG (NEG); CLARITY,URINE CLOUDY; COLOR,URINE YELLOW; GLUCOSE,URINE NEG (NEG); NITRITE,URINE POS (NEG); SQUAMOUS EPITHELIAL CELL,UR FEW /LPF; UROBILINOGEN,URINE 0.2 mg/dL (0.2 mg/dL)
[2019-11-14] MEDS ORDERED: IPRATRPIUM/ALBUTEROL 0.5/2.5MG 3 ML NEBU. NEB SCH (20:00)
[2019-11-14 20:24] LABS: % LYMPHS 5 % (24-48); % MONOS 5 % (0-10); % SEGS 90 % (35-66)
[2019-11-14 20:25] LABS: PLT ESTIMATE ADEQUATE (ADEQUATE)
[2019-11-14] MEDS ORDERED: levoFLOXacin 500 MG TABLET PO ONE (21:00)
[2019-11-14 22:17] VITALS: BP 146/92
[2019-11-14] MEDS: ACETAMINOPHEN 325 MG TABLET PO PRN (22:19)
[2019-11-14] MEDS: ONDANSETRON PF 4 MG/2 ML VIAL. IVP PRN (22:21)
[2019-11-14] MEDS: IV RINGERS SOLUTION,LACTATED 1,000 ML IV SCH (22:23)
[2019-11-14] MEDS: IPRATROPIUM/ALBUTEROL 20/100mcg/INH INHALER. INH SCH (22:31)
[2019-11-15] MEDS ORDERED: CETI10TA16 PO (00:18)
[2019-11-15 00:39] VITALS: BP 127/77
[2019-11-15] MEDS: ACETAMINOPHEN 325 MG TABLET PO PRN ×4 (03:19→23:23)
[2019-11-15] MEDS: IV RINGERS SOLUTION,LACTATED 1,000 ML IV SCH ×3 (03:19→08:21)
[2019-11-15] MEDS: ONDANSETRON PF 4 MG/2 ML VIAL. IVP PRN ×2 (03:45→08:23)
[2019-11-15 03:57] LABS: BASO # 0.1 x10^3/uL (0.0-0.2); BASO % 1 % (0-3); EOS % 0 % (0-3); HEMATOCRIT 43.4 % (39.0-53.0); HEMOGLOBIN 14.6 g/dL (13.0-17.5); LYMPH # 1.1 x10^3/uL (1.0-4.8); LYMPH % 8 % (24-48); MEAN CORPUSCULAR HEMOGLOBIN 31 pg (25-35); MEAN CORPUSCULAR HGB CONC 34 g/dL (31-37); MEAN CORPUSCULAR VOLUME 92 fL (79-100); MONO % 8 % (0-9); NEUT # 11.2 x10^3uL (1.8-7.7); NEUT % 84 % (31-73); PLATELET COUNT 164 x10^3/uL (140-400); RED BLOOD COUNT 4.73 x10^6/uL (4.30-5.70); RED CELL DISTRIBUTION WIDTH 12.9 % (11.5-14.5); WHITE BLOOD COUNT 13.4 x10^3/uL (4.0-11.0)
[2019-11-15 04:07] LABS: GFR 83.2; POTASSIUM 3.8 mmol/L (3.5-5.1)
[2019-11-15 05:55] VITALS: BP 136/83
[2019-11-15] MEDS: IPRATROPIUM/ALBUTEROL 20/100mcg/INH INHALER. INH SCH ×4 (08:00→20:00)
[2019-11-15] MEDS ORDERED: AA 3%/ELECTROLYTE-TPN SOLN/GLY 1,000 ML IV SCH (09:30)
[2019-11-15] MEDS ORDERED: PROCHLORPERAZINE 10 MG/2 ML VIAL. IV PRN (09:30)
[2019-11-15] MEDS: PANTOPRAZOLE IV 40 MG VIAL. IVP SCH (10:27)
--- NOTE | 2019-11-15 11:16 | PN ---
DATE: SUBJECTIVE: The patient admitted last night through the Emergency Room, actually was seen initially in the office and transferred over to the ER. Because of the temperature, he was worked up. Initial x-rays did not show anything nor did it show a bowel obstruction. He had severe nausea and vomiting. He is bringing up bilious material, unable to keep anything down. He is running a temperature as high as 103.2 (____). The patient is using a combination of Tylenol and ibuprofen to keep it down. He is on IV antibiotic therapy, may be having some type of a bladder infection. He did have positive nitrites. OBJECTIVE: VITAL SIGNS: The patient's blood pressure however is 136/83, respiration 18, pulse 92, temperature presently 100 degrees. The patient otherwise will continue on IV antibiotic therapy. LUNGS: Diminished, but clear. CARDIOVASCULAR: Stable. ABDOMEN: Soft, tender, but not hard at all. EXTREMITIES: No clubbing, cyanosis, nor edema. Imaging was unremarkable as far as just a KUB. We will do a CT scan. He has 2 peritoneal shunt catheters, but there was no obvious problems ____ noted. CT scan is being ____. LABORATORY DATA: White count 15-13, no obvious left shift. White count stable as noted. The patient otherwise slight elevation of liver enzyme of ALT up to 86 and basically otherwise unremarkable except for that urine that did show positive nitrites. The patient's COVID-19 negative. Influenza A and B negative. We will do CT abdomen and pelvis. Continue on IV antibiotic therapy for probable urinary tract infection, antiemetics and some nutritional support as well. IMPRESSION: Sepsis, severe nausea, vomiting, dehydration, diffuse abdominal pain, generalized weakness. PLAN: As above. RODY BENITES MD DR: HAYLEY/inocencia JOB#: [id number] / [id number]
[2019-11-15] MEDS: NORMAL SALINE IV SCH (12:08)
[2019-11-15] MEDS: GENTAMICIN SULFATE IV SCH (12:08)
[2019-11-15] MEDS: IBUPROFEN 400 MG TABLET. PO PRN (12:09)
[2019-11-15] MEDS: AA 3%/ELECTROLYTE-TPN SOLN/GLY 1,000 ML IV SCH (12:09)
--- NOTE | 2019-11-15 12:13 | RAD ---
CT scan of the abdomen and pelvis without contrast 11/15/2019 CLINICAL HISTORY: Severe nausea and vomiting. Biliary vomitus. TECHNIQUE: Unenhanced, contiguous, 3 mm axial sections were obtained through the abdomen and pelvis. One or more of the following individualized dose reduction techniques were utilized for this study: 1. Automated exposure control. 2. Adjustment of the mA and/or kV according to patient size. 3. Use of iterative reconstruction technique. FINDINGS: Images through the lung bases demonstrate minimal dependent subsegmental atelectasis bilaterally. The liver parenchyma has a decreased attenuation consistent with fatty infiltration. The spleen, pancreas, adrenal glands and kidneys are within normal limits. The abdominal aorta tapers normally. The gallbladder is not visualized consistent with a cholecystectomy. No free fluid or free air is seen within the abdomen. Air and stool are seen throughout the colon. The appendix is well-visualized and is within normal limits. STAFF ENGINEER shunt tubing extends along the anterior abdominal wall to enter the peritoneal cavity within the left lower quadrant of the abdomen and in and extends superiorly to the left mid abdomen. Residual tubing is seen within the left anterior abdominal wall. Images through the pelvis demonstrate the urinary bladder to be slightly contracted. The prostate gland is slightly prominent. A moderate amount of stool is seen involving the sigmoid colon. No free fluid is seen within the pelvis. A punctate calcification is seen within the right pelvis consistent with a phlebolith. Dysraphism of L5 and the sacrum is seen. 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 Minimal S-shaped curvature of the thoracolumbar spine is seen. Degenerative changes are seen involving lower thoracic and throughout the lumbar spine. IMPRESSION: No acute abnormality is seen. Electronically signed by: Tony Mcdaniel MD (11/15/2019 12:10 PM) [id number]
[2019-11-15 12:22] VITALS: BP 138/97
[2019-11-15] MEDS: GENTAMICIN PER PHARMACY MC PRN (12:58)
[2019-11-15 15:32] VITALS: BP 149/91
[2019-11-15] MEDS ORDERED: GENTAMICIN RANDOM LEVEL. MC ONE (20:00)
[2019-11-15 20:03] VITALS: BP 137/78
[2019-11-15] MEDS ORDERED: levoFLOXacin 500 MG TABLET PO SCH (21:00)
[2019-11-15 23:26] VITALS: BP 145/93
[2019-11-16] MEDS: AA 3%/ELECTROLYTE-TPN SOLN/GLY 1,000 ML IV SCH ×2 (04:06→12:00)
[2019-11-16 06:28] VITALS: BP 144/88
[2019-11-16] MEDS: ACETAMINOPHEN 325 MG TABLET PO PRN ×2 (06:40→21:16)
[2019-11-16 06:50] LABS: BASO % 0 % (0-3); EOS % 0 % (0-3); HEMATOCRIT 43.8 % (39.0-53.0); HEMOGLOBIN 14.7 g/dL (13.0-17.5); LYMPH # 1.1 x10^3/uL (1.0-4.8); LYMPH % 11 % (24-48); MEAN CORPUSCULAR HEMOGLOBIN 31 pg (25-35); MEAN CORPUSCULAR HGB CONC 34 g/dL (31-37); MEAN CORPUSCULAR VOLUME 92 fL (79-100); MONO # 1.1 x10^3/uL (0.0-1.1); MONO % 11 % (0-9); NEUT # 7.9 x10^3uL (1.8-7.7); NEUT % 78 % (31-73); PLATELET COUNT 185 x10^3/uL (140-400); RED BLOOD COUNT 4.77 x10^6/uL (4.30-5.70); RED CELL DISTRIBUTION WIDTH 12.9 % (11.5-14.5); WHITE BLOOD COUNT 10.1 x10^3/uL (4.0-11.0)
[2019-11-16 06:51] LABS: CALCIUM 8.5 mg/dL (8.5-10.1); CREATININE 0.7 mg/dL (0.7-1.3); GFR 125.5; POTASSIUM 3.8 mmol/L (3.5-5.1)
[2019-11-16] MEDS: IPRATROPIUM/ALBUTEROL 20/100mcg/INH INHALER. INH SCH ×4 (08:10→20:00)
[2019-11-16] MEDS: PANTOPRAZOLE IV 40 MG VIAL. IVP SCH (08:10)
[2019-11-16 10:35] VITALS: BP 125/83
[2019-11-16] MEDS: GENTAMICIN SULFATE IV SCH (12:09)
[2019-11-16] MEDS: NORMAL SALINE IV SCH (12:09)
[2019-11-16] MEDS: GENTAMICIN PER PHARMACY MC PRN (13:25)
[2019-11-16 14:54] VITALS: BP 160/90
[2019-11-16 19:17] VITALS: BP 141/92
--- NOTE | 2019-11-16 19:43 | PN ---
DATE: 11/16/2019 SUBJECTIVE: A 39-year-old male came in with severe nausea, vomiting, dehydration, bring up by bilious looking material. The patient is also having trouble with severe bladder infection. Urine cultures are still pending. He was running a temperature, but presently blood pressure 160/90, pulse 95, temperature anywhere from 101.1 down to 98. He is on gentamicin and Levaquin. He feels better. He is able to take some liquids and white count has come down from 15 down to 10. Electrolytes look stable. Other than that outside of this fever of unknown etiology at the present time, it looks like it is coming from his bladder, but we are still waiting for the culture report. CT was done of his abdomen and pelvis and there was no acute problem seen in the abdomen. He has a lot of degenerative changes. OBJECTIVE LUNGS: Diminished, but clear. CARDIOVASCULAR: Stable. ABDOMEN: Soft, protuberant, nontender. EXTREMITIES: No clubbing, cyanosis, nor edema. NEUROLOGIC: Intact. PLAN: We will go ahead and continue with antibiotics and hopefully will get the results back on this. Culture of his urine and make further assessment at that time, possible discharge. IMPRESSION: 1. Sepsis. 2. Urinary tract infection. 3. Nausea, vomiting, dehydration. RODY BENITES MD DR: HAYLEY/inocencia JOB#: [id number] / [id number]
[2019-11-16] MEDS: IBUPROFEN 400 MG TABLET. PO PRN (21:17)
[2019-11-16 23:10] VITALS: BP 128/85
[2019-11-17 05:18] VITALS: BP 142/94
[2019-11-17] MEDS: PANTOPRAZOLE IV 40 MG VIAL. IVP SCH (09:31)
[2019-11-17] MEDS: IPRATROPIUM/ALBUTEROL 20/100mcg/INH INHALER. INH SCH ×4 (09:37→20:00)
[2019-11-17] MEDS: NORMAL SALINE IV SCH (11:38)
[2019-11-17] MEDS: GENTAMICIN SULFATE IV SCH (11:38)
[2019-11-17 12:00] VITALS: BP 150/91
[2019-11-17] MEDS: AA 3%/ELECTROLYTE-TPN SOLN/GLY 1,000 ML IV SCH ×2 (12:05)
[2019-11-17 16:09] VITALS: BP 167/90
--- NOTE | 2019-11-17 18:13 | PN ---
DATE: SUBJECTIVE: A 39-year-old male in with sepsis. The patient feels better. He is not having as much problem with his nausea and vomiting, but he still runs a low-grade temperature at 99.5, blood pressure 167/90, respiratory rate 18, pulse 80, afebrile. We are still waiting to get his urine culture back and make further evaluation on him as indicated. Otherwise, until we can get those results back, we will have to wait until we can put him on oral medication to take care of the situation at hand. PHYSICAL EXAMINATION: GENERAL: The patient is alert and oriented. LUNGS: Diminished, but clear. CARDIOVASCULAR: Stable. ABDOMEN: Soft, nontender, protuberant. EXTREMITIES: No clubbing, cyanosis or edema. NEUROLOGIC: Intact. IMPRESSION: Sepsis, pyelonephritis, nausea, vomiting, dehydration. PLAN: As above. RODY BENITES MD DR: HAYLEY/inocencia JOB#: [id number] / [id number]
[2019-11-17 20:13] VITALS: BP 155/90
[2019-11-17 23:33] VITALS: BP 161/90
[2019-11-18 06:03] VITALS: BP 152/97
[2019-11-18] MEDS: IPRATROPIUM/ALBUTEROL 20/100mcg/INH INHALER. INH SCH ×2 (08:00→12:00)
[2019-11-18] MEDS: PANTOPRAZOLE IV 40 MG VIAL. IVP SCH (08:05)
[2019-11-18] MEDS ORDERED: SMZ/TMP 800/160MG TABLET. PO SCH (09:15)
[2019-11-18] MEDS ORDERED: amLODIPine BESYLATE 5 MG TABLET PO SCH (09:15)
[2019-11-18] MEDS ORDERED: ACET325T9 PO (11:12)
[2019-11-18] MEDS ORDERED: AMLO5TAB10 PO (11:12)
[2019-11-18] MEDS ORDERED: IBUP400T18 PO (11:12)
[2019-11-18] MEDS ORDERED: Smz/Tmp 800/160MG PO (11:12)
[2019-11-18] MEDS: NORMAL SALINE IV SCH (11:17)
[2019-11-18] MEDS: GENTAMICIN SULFATE IV SCH (11:17)
[2019-11-18 12:14] VITALS: BP 164/97
--- NOTE | 2019-11-20 12:28 | DS ---
DATE OF DISCHARGE: 11/18/2019 ADDENDUM The patient discharged with sepsis, pyelonephritis secondary to Escherichia coli, essential hypertension, history of spina bifida, history of right ventriculoperitoneal shunt, left programmable shunt, patient does do self-catheterization on himself. The patient will be discharged home. Follow up as an outpatient. Repeat UA with micro. RODY BENITES MD DR: HAYLEY/inocencia JOB#: [id number] / [id number]
--- NOTE | 2019-11-20 14:12 | DS ---
DATE OF DISCHARGE: 11/18/2019 HOSPITAL COURSE: A 39-year-old male in with severe nausea, vomiting, bringing up bilious material. He also had an elevated white count of 15,000. Urine did demonstrate numerous white blood cells as well as positive for nitrites. The patient in turn placed on IV antibiotic therapy. There was some delay due to other circumstances and getting his urine culture back, which eventually did come back. He had been put on gentamicin and Levaquin empirically. The cultures finally came back demonstrating an E. coli organism that was sensitive to the gentamicin and also sensitive to sulfur, for which he was placed on trimethoprim, when he left. Actually, he made good progress during the rest of his hospitalization. His blood pressure is slightly elevated at 164/97, respirations 18, pulse 85, still running low-grade temperature, but needs to be on the Septra-DS for at least 2 weeks. He will be coming back into the office for followup. The patient in turn CT scan of abdomen and pelvis demonstrated no abnormality there. In any case, the patient made good progress and he was discharged home for followup as an outpatient. RODY BENITES MD DR: HAYLEY/inocencia JOB#: [id number] / [id number]
== END 2019-11-18 13:47 | disposition home or self-care (01) | DRG 872 ==
LOC: ER 17:06 → 1 SOUTH 19:30
PROVIDERS: ADMIT Family Medicine; ATTEND Family Medicine
DX: A41.9 Sepsis, unspecified organism (principal); E87.1 Hypo-osmolality and hyponatremia; N12 Tubulo-interstitial nephritis, not specified as acute or chronic; E86.0 Dehydration; K59.00 Constipation, unspecified; Z98.2 Presence of cerebrospinal fluid drainage device; Z87.440 Personal history of urinary (tract) infections; Z79.899 Other long term (current) drug therapy; Z88.8 Allergy status to other drugs, medicaments and biological substances; Z91.040 Latex allergy status; Q07.01 Arnold-Chiari syndrome with spina bifida; Z20.828 Contact with and (suspected) exposure to other viral communicable diseases; B96.20 Unspecified Escherichia coli [E. coli] as the cause of diseases classified elsewhere; I10 Essential (primary) hypertension
CPT/HCPCS: 36415; 71045; 74018; 74176; 80048; 80053; 80170; 81001; 83605; 85007; 85025; 87040; 87086; 87186; 87804; 96360; 96361; C9113; J0780; J1580; J1956; J2405; J3490; J7120; 97110; 97116; 99285-25; J7030

== ENCOUNTER 2020-06-09 21:28 | Emergency (ER) | payer OTHER ==
[~2020-06-09] VITALS: Ht 167.6 cm; Wt 95.3 kg
[~2020-06-09 21:28] MED LIST changes: +ACET325T9 PO; +AMLO-186 PO; +CETI10TA16 PO; +IBUP400T18 PO; -PANT40TA5 PO; +PANT40TA6 PO; +Smz/Tmp 800/160MG PO
--- NOTE | 2020-06-09 22:45 | PHYS DOC ---
Past History Past Medical History: Anxiety, Arthritis, Bronchitis, Heart Disease, Pneumonia, UTI, Other Additional Past Medical Histor: spina bifida, chiari malformation, meiners diease, H1 N 1, respiratory fail Past Surgical History: Pacemaker, Other Additional Past Surgical Histo: BOX BRANDER Shunt on bilat skull x 27, Alcohol Use: None Drug Use: None General Adult HPI: HPI: ".. I am worried .. I may have COVID..I started getting a fever..and almost all of my family have COVID...My mom is at [facility] on a ventilator ...they tested me .. and I have been negavie ..I just get worried.. because I got an extensive medical hx.... I got diabetes, I want to spina bifida.. Mild Bess malformation, back in 2009 I got a bad case of an [facility] 1 flu and developed respiratory failure and was on a ventilator for weeks and then ended up getting cardiac damage from prolonged illness then it had to have this patient replaced here on the left and I have had lots of problems with my BOX BRANDER shunts.. Over the years have had 27 replacements... Patient is a 40 year old male who presents with viral syndrome. Has been exposed to family members with COVID. He has tested negative. Patient has extensive medical history as per above. Normally follows at [facility] with Dr. Del Real for BOX BRANDER shunt replacements. Also follows with Dr. Benites here locally. Patient did not not get a flu vaccination this year. Did have a history of previous Pneumovax. Patient up-to-date with other vaccinations. Patient has had episodes of frequent urinary tract infections. Patient denies any recent travel outside the [place] area but has had multiple exposures to Covid with family members. Review of Systems: Review of Systems: Constitutional: History of fever Eyes: Denies change in visual acuity HENT: Denies nasal congestion or sore throat Respiratory: Denies cough or shortness of breath Cardiovascular: Denies chest pain or edema GI: Denies abdominal pain, nausea, vomiting, bloody stools or diarrhea : Denies dysuria Musculoskeletal: Denies back pain or joint pain Integument: Denies rash Neurologic: Denies headache, focal weakness or sensory changes Endocrine: Denies polyuria or polydipsia Lymphatic: Denies swollen glands Psychiatric: Denies depression or anxiety Family History: Family History: Multiple family members with COVID Current Medications: Current Meds: See nursing for home meds Allergies: Allergies: Allergies Coded Allergies Type Severity Reaction Last Updated Verified amoxicillin Allergy Intermediate 11/20/18 Yes cefaclor Allergy Intermediate 11/20/18 Yes latex Allergy Intermediate 11/20/18 Yes morphine Allergy Unknown Rash 11/14/19 Yes Physical Exam: PE: Constitutional: , no acute distress, non-toxic appearance. [] HENT: Normocephalic, atraumatic, bilateral external ears normal, oropharynx moist, no oral exudates, nose normal. Old surgery sites and current BOX BRANDER shunts Eyes: PERRLA, EOMI, conjunctiva normal, no discharge. [] Neck: Normal range of motion, no tenderness, supple, no stridor. [] Cardiovascular: Tachycardia heart rate regular rhythm, no murmur [] Lungs & Thorax: Bilateral breath sounds equal apex few scattered wheezes auscultation []. Patient has a pacer left upper chest wall. Abdomen: Bowel sounds normal, soft, no tenderness, no masses, no pulsatile masses. Old surgery sites Skin: Warm, dry, no erythema, no rash. [] Back: No tenderness, no CVA tenderness. [] Old back surgery scars. Extremities: No tenderness, no cyanosis, no clubbing, ROM intact, no edema. Does report some chronically lower leg tenderness. Neurologic: Alert and oriented X 3, moves all extremities on request, does have distal sensory,, no focal deficits noted. [] Psychologic: Affect anxious,, judgement normal, mood normal. [] EKG: EKG: My interpretation EKG shows a sinus rhythm at 93 bpm. No acute morphology [] Radiology/Procedures: Radiology/Procedures: [][address] [address] IMAGING REPORT Signed PATIENT: [address] EACCOUNT: [id number] : 1980 LOCATION: ER AGE: 40 SEX: M EXAM STATUS: REG ER ORD. PHYSICIAN: ANGEL LUIS WOLFE MD REASON: Fever, chest discomfort PROCEDURE: PORTABLE CHEST 1V EXAM: PORTABLE CHEST 1V 06/09/2020 10:45 PM CLINICAL INDICATION: Fever, chest discomfort COMPARISON: Chest radiograph 11/14/2019 TECHNIQUE: AP view of the chest FINDINGS: Left chest wall pacemaker and bilateral BOX BRANDER shunt catheter tubing traversing the thorax is unchanged. The heart and mediastinum are normal. Lungs are adequately expanded. No consolidation, pleural effusion, or pneumothorax. No acute osseous abnormality. IMPRESSION: No acute cardiopulmonary abnormality. Electronically signed by: Jeanette Baptiste MD (06/09/2020 11:58 PM) [id number] DICTATED AND SIGNED BY: JEANETTE BAPTISTE MD DATE: 06/09/20 2812 CC: RODY BENITES MD; ANGEL LUIS WOLFE MD ~ Heart Score: HEART Score for Chest Pain: HEART Score for Chest Pain Response (Comments) Value History Slighlty/Non-Suspicious 0 ECG Normal 0 Age < 45 0 Risk Factors 1 or 2 Risk Factors 1 Troponin < Normal Limit 0 Total 1 Risk Factors: Risk Factors: DM, Current or recent (<one month) smoker, HTN, HLP, family history of CAD, obesity. Risk Scores: Score 0 - 3: 2.5% MACE over next 6 weeks - Discharge Home Score 4 - 6: 20.3% MACE over next 6 weeks - Admit for Clinical Observation Score 7 - 10: 72.7% MACE over next 6 weeks - Early Invasive Strategies Course & Med Decision Making: Course & Med Decision Making Pertinent Labs and Imaging studies reviewed. (See chart for details) Patient take Tylenol and ibuprofen as needed for discomfort. Patient follow his sats at home. Patient push fluids. Patient continue diabetic and other meds as previous directed. Patient to self isolate for the next 10 days. Patient to wear a mask covering his nose and mouth at all times in his interactions with others. Patient return if any concerns. Patient follow closely his glucose levels. Patient return if any concerns. Reviewed all labs with patient current time. Impression: 1. Viral syndrome 2. History of Spina bifid 3. History of multiple complications due to his spina bifida [] Dragon Disclaimer: Dragon Disclaimer: This electronic medical record was generated, in whole or in part, using a voice recognition dictation system. Departure Departure: Referrals: RODY BENITES MD (PCP) Rubén Disclaimer This chart was dictated in whole or in part using Voice Recognition software in a busy, high-work load, and often noisy Emergency Department environment. It may contain unintended and wholly unrecognized errors or omissions. ANGEL LUIS WOLFE MD Jun 09, 2020 22:44
[2020-06-09] MEDS ORDERED: ACETAMINOPHEN 500 MG TABLET PO ONE (23:00)
[2020-06-09] MEDS ORDERED: ALBUTEROL SULFATE 8GM INHALER. IH ONE (23:00)
[2020-06-09] MEDS ORDERED: IV RINGERS SOLUTION,LACTATED 1,000 ML IV SCH (23:00)
[2020-06-09 23:02] LABS: BASO % 1 % (0-3); EOS % 0 % (0-3); HEMATOCRIT 46.8 % (39.0-53.0); HEMOGLOBIN 15.7 g/dL (13.0-17.5); LYMPH # 0.5 x10^3/uL (1.0-4.8); LYMPH % 11 % (24-48); MEAN CORPUSCULAR HEMOGLOBIN 30 pg (25-35); MEAN CORPUSCULAR HGB CONC 34 g/dL (31-37); MEAN CORPUSCULAR VOLUME 90 fL (79-100); MONO # 0.5 x10^3/uL (0.0-1.1); MONO % 11 % (0-9); NEUT # 3.2 x10^3uL (1.8-7.7); NEUT % 77 % (31-73); PLATELET COUNT 192 x10^3/uL (140-400); RED BLOOD COUNT 5.19 x10^6/uL (4.30-5.70); RED CELL DISTRIBUTION WIDTH 13.4 % (11.5-14.5); WHITE BLOOD COUNT 4.1 x10^3/uL (4.0-11.0)
[2020-06-09 23:09] LABS: BACTERIA,URINE 0 /HPF (0-FEW); BILIRUBIN,URINE NEG (NEG); CLARITY,URINE CLEAR; COLOR,URINE YELLOW; GLUCOSE,URINE NEG (NEG); NITRITE,URINE NEG (NEG); RBC,URINE OCC /HPF (0-2); UROBILINOGEN,URINE 0.2 mg/dL (0.2 mg/dL); WBC,URINE OCC /HPF (0-4)
[2020-06-09 23:12] LABS: BARBITURATES NEG (NEG); BENZODIAZEPINES NEG (NEG); CALCIUM 9.1 mg/dL (8.5-10.1); CANNABINOIDS NEG (NEG); COCAINE NEG (NEG); CREATININE 1.2 mg/dL (0.7-1.3); GFR 67.1; METHADONE NEG (NEG); OPIATES NEG (NEG); PHENCYCLIDINE NEG (NEG)
[2020-06-09 23:23] LABS: ALBUMIN 4.2 g/dL (3.4-5.0); DIRECT BILIRUBIN 0.1 mg/dL (0.0-0.2); MAGNESIUM 2.1 mg/dL (1.8-2.4); TOTAL BILIRUBIN 0.2 mg/dL (0.2-1.0); TOTAL PROTEIN 8.3 g/dL (6.4-8.2)
[2020-06-09 23:28] LABS: AMPHETAMINE/METHAMPHETAMINE NEG (NEG)
[2020-06-09 23:29] LABS: INFLUENZA A PATIENT NEGATIVE (NEGATIVE); INFLUENZA B PATIENT NEGATIVE (NEGATIVE)
--- NOTE | 2020-06-10 00:01 | RAD ---
EXAM: PORTABLE CHEST 1V 06/09/2020 10:45 PM CLINICAL INDICATION: Fever, chest discomfort COMPARISON: Chest radiograph 11/14/2019 TECHNIQUE: AP view of the chest FINDINGS: Left chest wall pacemaker and bilateral LEATHER SCRUBBER shunt catheter tubing traversing the thorax is unchanged. The heart and mediastinum are normal. Lungs are adequately expanded. No consolidation, pleural effusion, or pneumothorax. No acute osseous abnormality. IMPRESSION: No acute cardiopulmonary abnormality. Electronically signed by: Jeanette Baptiste MD (06/09/2020 11:58 PM) [id number]
[2020-06-10 00:02] LABS: BGAS PH 7.43 (7.35-7.46)
[2020-06-10 03:00] VITALS: BP 137/84
--- NOTE | 2020-06-10 09:46 | EKG ---
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
--- NOTE | 2020-06-10 18:50 | NUR ---
the patient says that he does not need a breathing tx at this time.
== END 2020-06-10 03:00 | disposition home or self-care (01) ==
LOC: ER 21:28
DX: B34.9 Viral infection, unspecified (principal); Q05.9 Spina bifida, unspecified; F41.9 Anxiety disorder, unspecified; M19.90 Unspecified osteoarthritis, unspecified site; Z87.440 Personal history of urinary (tract) infections; Z95.0 Presence of cardiac pacemaker; Z88.1 Allergy status to other antibiotic agents; Z91.040 Latex allergy status; Z88.5 Allergy status to narcotic agent
CPT/HCPCS: 36415; 71045; 80048; 80076; 80307; 81001; 82550; 82803; 83605; 83690; 83735; 83880; 84443; 84484; 85025; 85379; 85610; 85730; 86140; 87040; 87070; 87804; 87880; 93005; 96360; 96361; 99285; J7120; J7613

== ENCOUNTER 2020-06-12 11:40 | Inpatient (IN) | payer MEDICARE, OTHER ==
[~2020-06-12] VITALS: Ht 167.6 cm; Wt 95.2 kg
--- NOTE | 2020-06-12 13:59 | PHYS DOC ---
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 Patient reports he has spina bifida, had restart his primary care provider, Dr. Ch, who had recommended he come to emergency room today. Patient reports he has been feeling ill for approximately last 7 days, has had malaise, no appetite, inability to eat or drink. States he has had some nausea and vomiting and diarrhea as well. States he does live in residence with exposure to 7 other persons in the residents who have Covid at this time. Patient says he has had an occasional cough, reports fevers, denies any dyspnea, however he reports he has not very active. He does have history of spina bifida. Patient reporting generalized body aches. (MARIA ESTHER FERNANDEZ APRN) Review of Systems Review of Systems Constitutional: Reports fever, malaise Eyes: Denies change in visual acuity, redness, or eye pain [] HENT: Denies nasal congestion or sore throat [] Respiratory: Reports occasional cough, minimal shortness of breath] Cardiovascular: No additional information not addressed in HPI [] GI: Denies abdominal pain, reports nausea and vomiting as well as diarrhea [] : Denies dysuria or hematuria reports decreased urine output due to decreased intake [] Musculoskeletal: Denies back pain or joint pain reports generalized body aches [] Integument: Denies rash or skin lesions [] Neurologic: Denies focal weakness or sensory changes does report headache [] Endocrine: Denies polyuria or polydipsia [] All other systems were reviewed and found to be within normal limits, except as documented in this note. (MARIA ESTHER FERNANDEZ APRN) Current Medications Current Medications Current Medications Medications (Trade) Dose Ordered Sig/Poppy Start Time Stop Time Status Last Admin Dose Admin Ondansetron HCl (Zofran) 4 mg 1X ONCE 06/12/20 14:00 06/12/20 14:01 Sodium Chloride 1,000 ml @ 1,000 mls/hr 1X ONCE 06/12/20 14:00 06/12/20 14:59 (MARIA ESTHER FERNANDEZ APRN) Allergies Allergies Allergies Coded Allergies Type Severity Reaction Last Updated Verified amoxicillin Allergy Intermediate 11/20/18 Yes cefaclor Allergy Intermediate 11/20/18 Yes latex Allergy Intermediate 11/20/18 Yes morphine Allergy Unknown Rash 11/14/19 Yes (MARIA ESTHER FERNANDEZ APRN) Physical Exam Physical Exam Constitutional: Well developed, no acute distress, non-toxic appearance. [] HENT: Normocephalic, atraumatic, , oropharynx dry, no oral exudates, nose normal. [] Eyes: PERRLA, EOMI, conjunctiva normal, no discharge. [] Neck: Normal range of motion, no tenderness, supple, no stridor. [] Cardiovascular:Heart rate regular rhythm, no murmur [] Lungs & Thorax: No noted air hunger, patient conversational, no audible wheezing, no respiratory distress noted [] Skin: Warm, dry, no erythema, no rash. [] Back: No tenderness, Extremities: No tenderness, no cyanosis, no clubbing, ROM intact, no edema. [] Neurologic: Alert and oriented X 3, normal motor function, normal sensory function, no focal deficits noted. [] Psychologic: Affect normal, judgement normal, mood normal. [] Complete physical assessment limited due to high likelihood of patient having coronavirus, and attempt to limit exposure to providers and other caregivers. (MARIA ESTHER FERNANDEZ APRN) EKG EKG [] (MARIA ESTHER FERNANDEZ APRN) Radiology/Procedures Radiology/Procedures PROCEDURE: CHEST AP ONLY CHEST AP ONLY History: Reason: malaise / Spl. Instructions: / History: Comparison: June 09, 2020. Findings: No consolidation or pleural effusion. Normal heart size. No pneumothorax. Shunt catheter tubing projecting over the chest, unchanged. Stable left-sided pacemaker. Impression: 1. No acute cardiopulmonary process. Electronically signed by: Jimmie Heck DO (06/12/2020 2:38 PM) [id number] DICTATED AND SIGNED BY: JIMMIE HECK DO DATE: 06/12/20 1438 [] (MARIA ESTHER FERNANDEZ APRN) Heart Score Risk Factors: Risk Factors: DM, Current or recent (<one month) smoker, HTN, HLP, family history of CAD, obesity. Risk Scores: Risk Factors: DM, Current or recent (<one month) smoker, HTN, HLP, family history of CAD, obesity. (MARIA ESTHER FERNANDEZ APRN) Course & Med Decision Making Course & Med Decision Making Pertinent Labs and Imaging studies reviewed. (See chart for details) [] Patient reports he continued to feel malaise and weak. States if he goes home he will just come back again because he feels so miserable. @[address] Amaral, who has seen patient earlier and had recommended admission if needed. Agrees to admission the patient continue fluids and monitoring. (MARIA ESTHER FERNANDEZ APRN) Dragon Disclaimer Dragon Disclaimer This electronic medical record was generated, in whole or in part, using a voice recognition dictation system. (MARIA ESTHER FERNANDEZ APRN) Attending Co-Sign The patient was seen and interviewed as well as examined at the bedside. The chart was reviewed. The case was discussed. Agree with the plan of care. (NEENA NOYOLA DO) Departure Departure: Impression: Primary Impression: Suspected COVID-19 virus infection Additional Impressions: Dehydration Nausea & vomiting Disposition: 09 ADMITTED INPT THIS HOSP Admitting Physician: Rody Benites (MARIA ESTHER FERNANDEZ APRN) Condition: STABLE Referrals: RODY BENITES MD (PCP) Problem Qualifiers Additional Impressions: Nausea & vomiting Vomiting type: unspecified Vomiting Intractability: non-intractable Qualified Codes: R11.2 - Nausea with vomiting, unspecified MARIA ESTHER FERNANDEZ APRN Jun 12, 2020 13:59 NEENA NOYOLA DO Jun 13, 2020 06:12
[2020-06-12] MEDS ORDERED: IV NORMAL SALINE 1,000ML 1,000 ML IV ONE (14:00)
[2020-06-12] MEDS ORDERED: ONDANSETRON PF 4 MG/2 ML VIAL. IVP ONE (14:00)
[2020-06-12 14:04] LABS: BASO % 1 % (0-3); EOS % 0 % (0-3); HEMOGLOBIN 15.9 g/dL (13.0-17.5); LYMPH # 0.7 x10^3/uL (1.0-4.8); LYMPH % 16 % (24-48); MEAN CORPUSCULAR HEMOGLOBIN 31 pg (25-35); MEAN CORPUSCULAR HGB CONC 34 g/dL (31-37); MEAN CORPUSCULAR VOLUME 90 fL (79-100); MONO # 0.5 x10^3/uL (0.0-1.1); MONO % 11 % (0-9); NEUT # 3.2 x10^3uL (1.8-7.7); NEUT % 72 % (31-73); PLATELET COUNT 177 x10^3/uL (140-400); RED CELL DISTRIBUTION WIDTH 13.2 % (11.5-14.5); WHITE BLOOD COUNT 4.4 x10^3/uL (4.0-11.0)
[2020-06-12 14:36] LABS: CALCIUM 8.8 mg/dL (8.5-10.1); CREATININE 1.2 mg/dL (0.7-1.3); GFR 67.1; POTASSIUM 3.7 mmol/L (3.5-5.1)
--- NOTE | 2020-06-12 14:41 | RAD ---
CHEST AP ONLY History: Reason: malaise / Spl. Instructions: / History: Comparison: June 09, 2020. Findings: No consolidation or pleural effusion. Normal heart size. No pneumothorax. Shunt catheter tubing projecting over the chest, unchanged. Stable left-sided pacemaker. Impression: 1. No acute cardiopulmonary process. Electronically signed by: Jimmie Heck DO (06/12/2020 2:38 PM) [id number]
[2020-06-12 14:42] LABS: ALBUMIN 3.9 g/dL (3.4-5.0); ALBUMIN/GLOBULIN RATIO 0.9 (1.0-1.7); TOTAL BILIRUBIN 0.4 mg/dL (0.2-1.0); TOTAL PROTEIN 8.1 g/dL (6.4-8.2)
[2020-06-12 16:46] LABS: BILIRUBIN,URINE NEG (NEG); CLARITY,URINE CLEAR; COLOR,URINE YELLOW; GLUCOSE,URINE NEG (NEG); NITRITE,URINE NEG (NEG); RBC,URINE 0 /HPF (0-2); UROBILINOGEN,URINE 0.2 mg/dL (0.2 mg/dL)
[2020-06-12 16:47] LABS: BACTERIA,URINE 0 /HPF (0-FEW); WBC,URINE OCC /HPF (0-4)
[2020-06-12] MEDS ORDERED: ONDANSETRON ODT 4 MG TAB.RAPDIS PO PRN (18:30)
[2020-06-12 20:10] VITALS: BP 115/82
[2020-06-12] MEDS ORDERED: LOSA25TA11 PO (20:27)
[2020-06-12] MEDS ORDERED: DILT120C99 PO (20:27)
--- NOTE | 2020-06-12 20:29 | NUR ---
The patient, [address], 40 y/o, M admitted by RODY BNEITES MD, was given written information regarding hospital policies, unit procedures and contact persons. Valuables were checked and left in care of pt.
[2020-06-12] MEDS: IV NORMAL SALINE 1,000ML 1,000 ML IV SCH (21:40)
[2020-06-12] MEDS: ONDANSETRON PF 4 MG/2 ML VIAL. IVP PRN (21:40)
[2020-06-12] MEDS: SMZ/TMP 800/160MG TABLET. PO SCH (21:40)
[2020-06-12] MEDS: ACETAMINOPHEN 325 MG TABLET PO PRN (23:35)
[2020-06-13] MEDS: ONDANSETRON PF 4 MG/2 ML VIAL. IVP PRN (06:21)
[2020-06-13] MEDS: IV NORMAL SALINE 1,000ML 1,000 ML IV SCH ×2 (06:21→08:19)
[2020-06-13] MEDS: ACETAMINOPHEN 325 MG TABLET PO PRN ×2 (06:21→21:37)
[2020-06-13 07:08] VITALS: BP 119/81
[2020-06-13 08:37] LABS: BASO % 1 % (0-3); EOS % 0 % (0-3); HEMATOCRIT 42.4 % (39.0-53.0); HEMOGLOBIN 14.4 g/dL (13.0-17.5); LYMPH # 1.7 x10^3/uL (1.0-4.8); LYMPH % 40 % (24-48); MEAN CORPUSCULAR HEMOGLOBIN 31 pg (25-35); MEAN CORPUSCULAR HGB CONC 34 g/dL (31-37); MEAN CORPUSCULAR VOLUME 90 fL (79-100); MONO # 0.4 x10^3/uL (0.0-1.1); MONO % 10 % (0-9); NEUT # 2.1 x10^3uL (1.8-7.7); NEUT % 49 % (31-73); PLATELET COUNT 167 x10^3/uL (140-400); RED CELL DISTRIBUTION WIDTH 13.4 % (11.5-14.5); WHITE BLOOD COUNT 4.3 x10^3/uL (4.0-11.0)
[2020-06-13] MEDS: SMZ/TMP 800/160MG TABLET. PO SCH ×2 (08:42→21:21)
[2020-06-13] MEDS: PANTOPRAZOLE 40 MG TABLET. PO SCH (08:43)
[2020-06-13] MEDS: CETIRIZINE HCL 10 MG TABLET PO SCH (08:43)
[2020-06-13] MEDS: amLODIPine BESYLATE 5 MG TABLET PO SCH (08:43)
[2020-06-13 08:45] LABS: CALCIUM 7.7 mg/dL (8.5-10.1); CREATININE 1.1 mg/dL (0.7-1.3); GFR 74.1; POTASSIUM 3.7 mmol/L (3.5-5.1)
[2020-06-13] MEDS ORDERED: POLYETHYLENE GLYCOL 3350 17 GM PACKET. PO ONE (10:00)
[2020-06-13 11:10] VITALS: BP 129/83
[2020-06-13 16:12] VITALS: BP 125/80
[2020-06-13] MEDS: IV 1/2 NORMAL SALINE 1,000 ML IV PRN (17:27)
[2020-06-13 18:53] VITALS: BP 114/84
[2020-06-13] MEDS: ENOXAPARIN 40 MG/0.4 ML SYRINGE. SQ SCH ×2 (21:00→21:21)
[2020-06-13] MEDS: LOSARTAN 25 MG TABLET. PO SCH (21:21)
--- NOTE | 2020-06-14 02:00 | PN ---
DATE: 06/13/2020 SUBJECTIVE: The patient came in with nausea, vomiting, unable to keep fluids down and the like. He was having tremendous problems with epigastric discomfort. The patient has multiple underlying medical problems. He was also dehydrated. He was admitted for such. PAST MEDICAL HISTORY: Tonsillectomy, hearing problems, deaf in the right ear. 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 He has a pacemaker. He has GERD, urinary retention. FAMILY HISTORY: Positive for diabetes, cancer of the genital organs and atrial fibrillation. ALLERGIES: TO AMOXICILLIN, CEFACLOR, LATEX AND MORPHINE. SOCIAL HISTORY: The patient denies smoking, alcohol or drug use and is a full code. REVIEW OF SYSTEMS: Nausea, vomiting, epigastric discomfort. Neurologically, otherwise intact, baseline for him. The patient in turn denies any problem with melena, hematochezia and neurologically as noted baseline. OBJECTIVE: VITAL SIGNS: Blood pressure 130/83, respiratory rate 18, pulse up to 102, temperature of 99.4, coming down. HEENT: The patient's head was atraumatic, normocephalic. Eyes: PERRLA without jaundice. The mouth and throat were normal. NECK: Supple. No JVD or thyromegaly. LUNGS: Diminished throughout, poor movement of air, but basically clear. CARDIOVASCULAR: Regular sinus rhythm. ABDOMEN: Soft, diffuse tenderness in the epigastric area, but no rebound or guarding. Positive bowel sounds. No hepatosplenomegaly was noted. EXTREMITIES: No clubbing, cyanosis, weakness in the legs with musculoskeletal atrophy and neurologically otherwise pulses noted distally. NEUROLOGIC: Speech fluent, spontaneous, appropriate. LABORATORY DATA: White count 4.3. Hemoglobin 14.24. The patient had earlier in the week run a temperature of 103. Urine was unremarkable ____ 3.7, BUN and creatinine of 12 and 1.1. Ferritin 612. Otherwise, elevated liver enzymes of 41 and 71. The patient's otherwise procalcitonin is less than 0.10. Ferritin elevated at 612. We will get an abdominal ultrasound to make further evaluation on him as indicated. IMPRESSION: Abdominal pain with nausea, vomiting, dehydration, exposure to COVID. Continue with fluids and monitor and get an abdominal ultrasound for elevated liver enzymes and elevated ferritin. RODY BENITES MD DR: HAYLEY/inocencia JOB#: [id number] / [id number]
--- NOTE | 2020-06-14 02:47 | NUR ---
Nursing note: Pt febrile at beginning of shift, tylenol given per orders. Pt c/o weakness worsened with fever, chills. Straight cath per home routine, I&O noted in documentation. Pt awaiting COVID swab from physician's office, multiple family members positive. Will continue to monitor.
[2020-06-14] MEDS: ACETAMINOPHEN 325 MG TABLET PO PRN ×3 (03:57→20:49)
[2020-06-14] MEDS: IV 1/2 NORMAL SALINE 1,000 ML IV PRN (03:57)
[2020-06-14 04:39] VITALS: BP 126/85
[2020-06-14 07:54] LABS: ALBUMIN 3.2 g/dL (3.4-5.0); CALCIUM 7.7 mg/dL (8.5-10.1); DIRECT BILIRUBIN 0.1 mg/dL (0.0-0.2); GFR 82.8; POTASSIUM 3.3 mmol/L (3.5-5.1); TOTAL BILIRUBIN 0.3 mg/dL (0.2-1.0); TOTAL PROTEIN 6.8 g/dL (6.4-8.2)
[2020-06-14 07:57] LABS: BASO % 0 % (0-3); EOS % 0 % (0-3); HEMATOCRIT 41.4 % (39.0-53.0); HEMOGLOBIN 14.2 g/dL (13.0-17.5); LYMPH # 1.5 x10^3/uL (1.0-4.8); LYMPH % 32 % (24-48); MEAN CORPUSCULAR HEMOGLOBIN 31 pg (25-35); MEAN CORPUSCULAR HGB CONC 34 g/dL (31-37); MEAN CORPUSCULAR VOLUME 89 fL (79-100); MONO # 0.4 x10^3/uL (0.0-1.1); MONO % 8 % (0-9); NEUT # 2.9 x10^3uL (1.8-7.7); NEUT % 60 % (31-73); PLATELET COUNT 161 x10^3/uL (140-400); RED BLOOD COUNT 4.64 x10^6/uL (4.30-5.70); RED CELL DISTRIBUTION WIDTH 13.1 % (11.5-14.5); WHITE BLOOD COUNT 4.7 x10^3/uL (4.0-11.0)
[2020-06-14] MEDS: POLYETHYLENE GLYCOL 3350 17 GM PACKET. PO SCH (10:04)
[2020-06-14] MEDS: amLODIPine BESYLATE 5 MG TABLET PO SCH (10:05)
[2020-06-14] MEDS: PANTOPRAZOLE 40 MG TABLET. PO SCH (10:05)
[2020-06-14] MEDS: SMZ/TMP 800/160MG TABLET. PO SCH (10:05)
[2020-06-14] MEDS: CETIRIZINE HCL 10 MG TABLET PO SCH (10:05)
[2020-06-14] MEDS: ENOXAPARIN 40 MG/0.4 ML SYRINGE. SQ SCH ×2 (10:06→20:49)
[2020-06-14 10:47] VITALS: BP 118/77
--- NOTE | 2020-06-14 11:27 | RAD ---
Complete abdominal ultrasound dated 06/14/2020. No comparison available. Clinical data indication: Abdominal pain. FINDINGS: Liver is of diffuse increased echogenicity, compatible fatty infiltration. No apparent hepatic mass. Biliary tree normal in caliber. The common bile duct measures 6 mm. Gallbladder is surgically absent. No fluid collections the gallbladder fossa. Right kidney measures 10.8 cm in length. Left kidney measures 11.4 cm in length. No hydronephrosis. Pancreas aorta and IVC are not well evaluated due to overlying bowel gas. No signal ascites. Spleen is homogeneous in echogenicity and measures 10.6 cm longitudinal. IMPRESSION: 1. No acute sonographic abnormality. 2. Fatty infiltration of the liver. 3. Status post cholecystectomy. Electronically signed by: Benjamin Nguyen MD (06/14/2020 11:24 AM) [id number]
[2020-06-14] MEDS ORDERED: AZITHROMYCIN 250 MG TABLET. PO ONE (12:00)
[2020-06-14] MEDS ORDERED: ELECTROLYTE (NON-ICU) PROTOCOL. MC PRN (12:15)
[2020-06-14] MEDS ORDERED: LOPERAMIDE 2 MG CAPSULE PO ONE (12:45)
--- NOTE | 2020-06-14 13:14 | RAD ---
Single view chest dated 06/14/2020. Comparison made to 06/12/2020. CLINICAL INDICATION: Shortness breath cough and fever. FINDINGS: Single upright portable exam performed. Heart and mediastinal contours are stable. Left subclavian pacer in place, unchanged. There is ventricular peritoneal shunt tubing bilaterally, unchanged. Minimal patchy increased density at the left lung base, similar to prior study. No consolidation or pleural effusion. No pneumothorax. IMPRESSION: No acute radiographic abnormality. Stable findings compared to 06/12/2020. Electronically signed by: Benjamin Nguyen MD (06/14/2020 1:11 PM) DILLON
[2020-06-14] MEDS: levoFLOXacin 500 MG TABLET PO SCH (13:46)
[2020-06-14] MEDS: BENZONATATE 100 MG CAPSULE. PO SCH ×2 (13:48→20:49)
[2020-06-14 15:24] VITALS: BP 122/79
[2020-06-14 19:00] VITALS: BP 99/66
[2020-06-14] MEDS: LACTOBACILLUS RHAMNOSUS GG 1 CAPSULE. PO SCH (20:49)
--- NOTE | 2020-06-14 22:08 | PN ---
DATE: SUBJECTIVE: He is a 40-year-old male who has been having nausea, vomiting, now he has got severe diarrhea. The patient also has been running a temperature upwards of 100.9 with a pulse in the 90s. He says he does not feel very good. The patient's white count remained basically stable. He does not look like he feels very good obviously still running low-grade temperature. His COVID-19 is still pending. We had a repeat chest x-ray today because of the fever and they did not picker packer anything. We will await the C. difficile return. OBJECTIVE: VITAL SIGNS: The patient's blood pressure 122/80, respiratory rate 20, pulse 93, febrile, 99.8. GENERAL: The patient is alert and oriented. LUNGS: Diminished, but basically clear. CARDIOVASCULAR: Regular sinus rhythm, S1, S2. ABDOMEN: Protuberant, soft, diffuse tenderness, but no rebound or guarding. Positive bowel sounds, no hepatosplenomegaly. EXTREMITIES: No clubbing, cyanosis or edema. LABORATORY DATA: White count was normal. Chemistries are basically normal except for low potassium of 3.3, put on electrolyte replacement and repeat that in the a.m. Do a chemistry in the morning. The patient otherwise will continued to be monitored and make further evaluation. IMPRESSION: Therefore, nausea, vomiting, dehydration, hypokalemia, diarrhea, elevated liver enzymes, which are passing improving and elevated ferritin, fever, COVID-19 pending. RODY BENITES MD DR: HAYLEY/inocencia JOB#: [id number] / [id number]
[2020-06-14] MEDS: LOSARTAN 25 MG TABLET. PO SCH (22:15)
[2020-06-15 00:15] VITALS: BP 108/73
[2020-06-15] MEDS: ACETAMINOPHEN 325 MG TABLET PO PRN ×4 (02:16→20:46)
--- NOTE | 2020-06-15 04:06 | NUR ---
Nursing note: Pt temperature 99 through shift, tylenol given per orders. BP low on first vital check, re-checked and 117/74; losartan given per orders. Pt straight cath, up x1 assist. Pt expressed concern regarding how he feels physically as well as mental stress r/t mother and step-father hospitalization for covid.
[2020-06-15] MEDS: levoFLOXacin 500 MG TABLET PO SCH (06:12)
[2020-06-15 06:58] VITALS: BP 125/75
[2020-06-15] MEDS: ENOXAPARIN 40 MG/0.4 ML SYRINGE. SQ SCH ×2 (08:25→20:07)
[2020-06-15] MEDS: BENZONATATE 100 MG CAPSULE. PO SCH ×3 (08:25→20:07)
[2020-06-15] MEDS: LACTOBACILLUS RHAMNOSUS GG 1 CAPSULE. PO SCH ×2 (08:25→20:07)
[2020-06-15] MEDS: amLODIPine BESYLATE 5 MG TABLET PO SCH (08:25)
[2020-06-15] MEDS: IV 1/2 NORMAL SALINE 1,000 ML IV PRN (08:26)
[2020-06-15] MEDS: AZITHROMYCIN 250 MG TABLET. PO SCH (08:26)
[2020-06-15] MEDS: PANTOPRAZOLE 40 MG TABLET. PO SCH (08:26)
[2020-06-15] MEDS: POLYETHYLENE GLYCOL 3350 17 GM PACKET. PO SCH (08:26)
[2020-06-15] MEDS: CETIRIZINE HCL 10 MG TABLET PO SCH (08:26)
[2020-06-15 09:01] LABS: CALCIUM 8.4 mg/dL (8.5-10.1); CREATININE 0.9 mg/dL (0.7-1.3); GFR 93.5; POTASSIUM 3.3 mmol/L (3.5-5.1)
--- NOTE | 2020-06-15 09:23 | NUR ---
IP: patient PUI for COVID-19, requires contact and airborne precautions.
--- NOTE | 2020-06-15 10:26 | NUR ---
IP: called Dr. Lewis office to obtain COVID result, still pending. Nurse stated office will call when result available.
[2020-06-15 11:55] VITALS: BP 118/79
[2020-06-15 14:58] VITALS: BP 109/69
--- NOTE | 2020-06-15 18:01 | NUR ---
PT feeling febrile part of the day with 'chills'. PT feels that his is 'weak'. PT is able to verbalize understanding of poc. PT can be manipulative at times depending on home care coordinator. In report was told pt can self cath and does not need assistance, however, he had this nurse assist him to self cath because 'he is weak'. Then when GIS PROFESSOR was in there he said he can do it by himself. Antonieta MENDIOLA
[2020-06-15 18:53] VITALS: BP 107/73
[2020-06-15] MEDS: LOSARTAN 25 MG TABLET. PO SCH (20:07)
--- NOTE | 2020-06-15 23:02 | RAD ---
CT scan abdomen and pelvis without contrast 06/15/2020 CLINICAL HISTORY: Abdominal pain. TECHNIQUE: Unenhanced, contiguous, 3 mm axial sections were obtained through the abdomen and pelvis. One or more of the following individualized dose reduction techniques were utilized for this study: 1. Automated exposure control. 2. Adjustment of the mA and/or kV according to patient size. 3. Use of iterative reconstruction technique. FINDINGS: Comparison is made to the patient's ultrasound of the abdomen dated 06/14/2020. Additional comparison is made to patient's CT scan of the abdomen and pelvis dated 11/15/2019. Images through the lung bases demonstrate patchy areas of infiltrate involving the right middle lobe and both lower lobes. The heart is borderline enlarged. The liver parenchyma has a decreased attenuation consistent with fatty infiltration. The spleen, pancreas, adrenal glands and kidneys are within normal limits. The abdominal aorta tapers normally. The gallbladder is not visualized consistent with a cholecystectomy. No free fluid or free air is seen within the abdomen. Air and stool are seen throughout the colon. There is no evidence of bowel obstruction. The appendix is well-visualized and is within normal limits. 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 Images through the pelvis demonstrate the urinary bladder distended with urine. No free fluid is seen. The osseous structures are unchanged. IMPRESSION: 1. Patchy areas of infiltrate are seen involving the right middle lobe and both lower lobes. 2. No acute abnormality is seen involving the abdomen and pelvis. Electronically signed by: Tony Mcdaniel MD (06/15/2020 10:59 PM) [id number]
[2020-06-15 23:15] VITALS: BP 117/78
--- NOTE | 2020-06-15 23:49 | PN ---
DATE: SUBJECTIVE: A 40-year-old gentleman comes in because he has been having problems with a fever pretty much of unknown etiology. His diarrhea has slowed down. He has been having epigastric discomfort problem swallowing and keeping his food down, there on top of that, he developed this fever. He is on azithromycin and Levaquin for the present being his COVID-19 test is still pending. A chest x-ray done yesterday was basically unremarkable as the patient continues to make some progress, he feels a little bit better. OBJECTIVE: VITAL SIGNS: His blood pressure is 110/70, respiratory rate 20, pulse 90, temperature up to 100.2, down to 99.4. The patient's diarrhea has pretty much stopped. GENERAL: The patient is alert and oriented. LUNGS: Diminished, poor movement of air. CARDIOVASCULAR: Regular sinus rhythm. ABDOMEN: Soft, diffuse tenderness in the left lower quadrant, but no rebound or guarding. Positive bowel sounds. CT scan will be performed in the morning for further evaluation of that as well. IMPRESSION: In any case, impression, therefore of abdominal pain with nausea, vomiting, dehydration, exposure to COVID. PLAN: Continue with fluids and monitor his liver enzymes, which have come down. RODY BENITES MD DR: HAYLEY/inocencia JOB#: [id number] / [id number]
[2020-06-16] MEDS: ACETAMINOPHEN 325 MG TABLET PO PRN (01:39)
--- NOTE | 2020-06-16 01:59 | NUR ---
Pt sitting up in bed when approached for assessment. Pt denied any complaints of pain when asked but stated "he still feels weak." Pt was febrile when VS where taken. Tylenol given as indicated. Pt requested help w/ self catheterization. Pt was helped to stand to change brief. Pt was able to cath. self w/o help. Pt is now resting comfortably in bed w/ call light in reach. Will continue to monitor.
[2020-06-16] MEDS: levoFLOXacin 500 MG TABLET PO SCH (05:25)
[2020-06-16 06:30] VITALS: BP 117/73
[2020-06-16] MEDS: amLODIPine BESYLATE 5 MG TABLET PO SCH (09:19)
[2020-06-16] MEDS: BENZONATATE 100 MG CAPSULE. PO SCH ×3 (09:19→21:47)
[2020-06-16] MEDS: LACTOBACILLUS RHAMNOSUS GG 1 CAPSULE. PO SCH ×2 (09:19→21:47)
[2020-06-16] MEDS: PANTOPRAZOLE 40 MG TABLET. PO SCH (09:19)
[2020-06-16] MEDS: AZITHROMYCIN 250 MG TABLET. PO SCH (09:19)
[2020-06-16] MEDS: CETIRIZINE HCL 10 MG TABLET PO SCH (09:19)
[2020-06-16] MEDS: ENOXAPARIN 40 MG/0.4 ML SYRINGE. SQ SCH ×2 (09:20→21:48)
[2020-06-16] MEDS: POLYETHYLENE GLYCOL 3350 17 GM PACKET. PO SCH (09:20)
[2020-06-16] MEDS ORDERED: IV 1/2 NORMAL SALINE 1,000 ML IV PRN (10:00)
[2020-06-16] MEDS ORDERED: DEXAMETHASONE SOD PHOS 4 MG/ML VIAL. PO SCH (10:20)
[2020-06-16 11:00] VITALS: BP 115/72
[2020-06-16] MEDS ORDERED: VANCOMYCIN 2 GM in IV NORMAL SALINE 500ML 500 ML IV ONE (11:00)
[2020-06-16] MEDS: CHOLECALCIFEROL (VITAMIN D3) 1,000 UNIT TABLET PO SCH (11:29)
[2020-06-16] MEDS: ZINC SULFATE 220 MG CAPSULE. PO SCH (11:29)
[2020-06-16] MEDS: DEXAMETHASONE SOD PHOS 4 MG/ML VIAL. IVP SCH ×2 (11:29→17:48)
[2020-06-16] MEDS ORDERED: DEXAMETHASONE SOD PHOS 4 MG/ML VIAL. IVP SCH (12:00)
[2020-06-16 14:03] LABS: BASO % 0 % (0-3); EOS % 0 % (0-3); HEMATOCRIT 41.8 % (39.0-53.0); HEMOGLOBIN 14.3 g/dL (13.0-17.5); LYMPH # 0.8 x10^3/uL (1.0-4.8); LYMPH % 14 % (24-48); MEAN CORPUSCULAR HEMOGLOBIN 31 pg (25-35); MEAN CORPUSCULAR HGB CONC 34 g/dL (31-37); MEAN CORPUSCULAR VOLUME 89 fL (79-100); MONO # 0.4 x10^3/uL (0.0-1.1); MONO % 7 % (0-9); NEUT # 4.4 x10^3uL (1.8-7.7); NEUT % 79 % (31-73); PLATELET COUNT 222 x10^3/uL (140-400); RED BLOOD COUNT 4.68 x10^6/uL (4.30-5.70); RED CELL DISTRIBUTION WIDTH 13.7 % (11.5-14.5); WHITE BLOOD COUNT 5.5 x10^3/uL (4.0-11.0)
[2020-06-16 14:10] LABS: CALCIUM 8.1 mg/dL (8.5-10.1); CREATININE 0.7 mg/dL (0.7-1.3); GFR 124.9; POTASSIUM 3.2 mmol/L (3.5-5.1)
[2020-06-16 15:35] VITALS: BP 120/73
[2020-06-16] MEDS: VANCOMYCIN PER PHARMACY MC PRN ×2 (17:34→17:37)
--- NOTE | 2020-06-16 17:38 | NUR ---
Pharmacy Vancomycin Dosing Note S:Consulted to monitor and dose vancomycin started 06/16/20. O:[address] is a 40 year old M with Pneumonia, . Height: 5 feet, 6 inches Weight: 95.3 kg [place] Body Weight: 63.80 Adjusted Body Weight: 76.40 Dosing Weight: Actual Other Antibiotics: LEVOFLOXACIN AND AZITHROMYCIN LABS: Last BUN: 7 Last Creatinine: 0.7 Creatinine Clearance: 151.59 Last WBC: 5.5 Last Procalcitonin: <0.10 Vancomycin Dosing: Loading Dose: 2000 mg x1 Dosing Weight: Actual Target Trough: 10-20 A: Based on: Actual weight and indication P: 1. Begin Vancomycin 1500 mg IV q12h 2. Follow up Trough level on 06/17/20 at 2300 3. Pharmacy will continue to monitor, follow and adjust therapy as needed. JUAN SAM, 06/16/20 [id number]
--- NOTE | 2020-06-16 17:58 | NUR ---
END OF SHIFT-Pt A&O x4, able to participate in POC et education. Doing remarkably well dealing with the of his mother this AM. LBM 06/14, continues to self-cath for urine. Denies pain in any location. VSS, has been afebrile all shift. COVID+ result this AM. Planned transfer to [facility] was declined by the physician at that facility.
--- NOTE | 2020-06-16 18:08 | NUR ---
END OF SHIFT-Pt A&Ox4, able to participate in education et POC. 2nd IV site established for administration of protonix gtt. Critical result of HGB this afternoon was actually an improvement from 6.[address] notified et charted in interventions. IVABT continue. Waiting for COVID results.
[2020-06-16 21:15] VITALS: BP 131/80
[2020-06-16] MEDS: LOSARTAN 25 MG TABLET. PO SCH (21:48)
[2020-06-16] MEDS: VANCOMYCIN 1.5 GM in IV NORMAL SALINE 500ML 500 ML IV SCH (23:47)
--- NOTE | 2020-06-17 00:19 | PN ---
DATE: SUBJECTIVE: This is a 40-year-old gentleman who comes in with COVID-19 pneumonia. The patient is resting fairly comfortably, making fairly good progress. He requested to be transferred. We tried to transfer him to the [facility] per his request. I talked to the following physicians down there and they said they did not have any available space for him and that it sounded like he was doing reasonably well on what we were doing for him. There is one doctor who said we are not going to do anything more for him than what you are doing already for him, so he was informed of that and we will continue with IV antibiotic therapy. He did have a temperature last night; however, it has come down very nicely from 102 (NC) to 98.3. OBJECTIVE: VITAL SIGNS: Blood pressure 120/73, respiratory rate 20, pulse 96. GENERAL: The patient otherwise is alert and oriented. Speech fluent, very distraught. His mother this morning as a result of COVID. She had been on a vent and of a heart attack it sounds like. So we did some grief counseling as well unfortunately for this young man and his stepfather is also quite ill and recovering from the COVID himself, but in any case, it looks like this patient is doing better. LUNGS: Diminished throughout, poor movement of air, but basically clear. CARDIOVASCULAR: Regular sinus rhythm. ABDOMEN: Protuberant. EXTREMITIES: No clubbing, cyanosis or edema. NEUROLOGIC: Intact. ASSESSMENT AND PLAN: The patient's labs are basically stable. Mild ____ loss on that potassium of 3.2, but he is on electrolyte replacement therapy and we will continue to monitor him accordingly. RODY BENITES MD DR: HAYLEY/inocencia JOB#: [id number] / [id number]
[2020-06-17] MEDS: DEXAMETHASONE SOD PHOS 4 MG/ML VIAL. IVP SCH ×4 (02:16→17:11)
--- NOTE | 2020-06-17 04:10 | NUR ---
Pt seems to have better attitude towards POC. Pt states "his mom is now helping him get better in [facility]." Pt had no complaints of pain during assessment. VS show pt has been afebrile since beginning of shift. Pt self cath self w/ assistance of staff to help to bathroom. Pt states although he feels better, he still feels weak walking around. Pt has call light in bed. Will continue to monitor.
[2020-06-17 05:44] VITALS: BP 113/73
[2020-06-17] MEDS: AZITHROMYCIN 250 MG TABLET. PO SCH (09:18)
[2020-06-17] MEDS: POLYETHYLENE GLYCOL 3350 17 GM PACKET. PO SCH (09:18)
[2020-06-17] MEDS: CETIRIZINE HCL 10 MG TABLET PO SCH (09:18)
[2020-06-17] MEDS: ENOXAPARIN 40 MG/0.4 ML SYRINGE. SQ SCH ×2 (09:18→21:30)
[2020-06-17] MEDS: ZINC SULFATE 220 MG CAPSULE. PO SCH (09:18)
[2020-06-17] MEDS: amLODIPine BESYLATE 5 MG TABLET PO SCH (09:18)
[2020-06-17] MEDS: LACTOBACILLUS RHAMNOSUS GG 1 CAPSULE. PO SCH ×2 (09:18→21:29)
[2020-06-17] MEDS: PANTOPRAZOLE 40 MG TABLET. PO SCH (09:18)
[2020-06-17] MEDS: BENZONATATE 100 MG CAPSULE. PO SCH ×3 (09:19→21:30)
[2020-06-17] MEDS: CHOLECALCIFEROL (VITAMIN D3) 1,000 UNIT TABLET PO SCH (09:19)
[2020-06-17 10:12] VITALS: BP 136/82
[2020-06-17] MEDS: VANCOMYCIN 1.5 GM in IV NORMAL SALINE 500ML 500 ML IV SCH ×2 (11:06→23:31)
[2020-06-17 15:55] VITALS: BP 132/71
[2020-06-17] MEDS ORDERED: ALBUTEROL SULFATE 8GM INHALER. INH PRN (16:30)
[2020-06-17 20:00] VITALS: BP 121/77
[2020-06-17] MEDS: LOSARTAN 25 MG TABLET. PO SCH (21:30)
[2020-06-17] MEDS: ACETAMINOPHEN 325 MG TABLET PO PRN (21:30)
[2020-06-17 22:45] LABS: VANC TR 6.5 mcg/mL (10.0-20.0)
[2020-06-17] MEDS: VANCOMYCIN PER PHARMACY MC PRN (23:08)
--- NOTE | 2020-06-17 23:10 | NUR ---
Pharmacy Vancomycin Dosing Note S:Consulted to monitor and dose vancomycin started 06/16/20. O:[address] is a 40 year old M with Pneumonia, . Height: 5 feet, 6 inches Weight: 95.1 kg [place] Body Weight: 63.80 Adjusted Body Weight: 76.32 Dosing Weight: Actual Other Antibiotics: LEVOFLOXACIN AND AZITHROMYCIN LABS: Last BUN: 7 Last Creatinine: 0.7 Creatinine Clearance: 151.59 Last WBC: 5.5 Last Procalcitonin: <0.10 Tmax (past 24 hours): Microbiology: I/O: 1380/1605 Drug Levels: Last Trough level: 6.5 on 06/17/20 at 2222 Last dose given 06/17/20 at 1106 Vancomycin Dosing: Loading Dose: Dosing Weight: Actual Target Trough: 10-20 A: Based on: Trough, Actual Wt and CrCl P: 1. 06/17/20 2300 Increase Vancomycin 1500 mg IV q8h 2. Follow up Trough level on 06/18/20 at 2230 3. Pharmacy will continue to monitor, follow and adjust therapy as needed. ADI QUESADA RPH, 06/17/200 Signed: 06/17/20 at 2311 by ADI QUESADA RPH PHA
[2020-06-18] MEDS: DEXAMETHASONE SOD PHOS 4 MG/ML VIAL. IVP SCH ×4 (01:44→17:11)
[2020-06-18 05:41] VITALS: BP 129/57
[2020-06-18] MEDS: VANCOMYCIN 1.5 GM in IV NORMAL SALINE 500ML 500 ML IV SCH ×3 (06:05→23:32)
[2020-06-18] MEDS: BENZONATATE 100 MG CAPSULE. PO SCH ×3 (08:13→21:03)
[2020-06-18] MEDS: AZITHROMYCIN 250 MG TABLET. PO SCH (08:13)
[2020-06-18] MEDS: PANTOPRAZOLE 40 MG TABLET. PO SCH (08:13)
[2020-06-18] MEDS: ZINC SULFATE 220 MG CAPSULE. PO SCH (08:14)
[2020-06-18] MEDS: CHOLECALCIFEROL (VITAMIN D3) 1,000 UNIT TABLET PO SCH (08:14)
[2020-06-18] MEDS: ENOXAPARIN 40 MG/0.4 ML SYRINGE. SQ SCH ×2 (08:14→21:03)
[2020-06-18] MEDS: LACTOBACILLUS RHAMNOSUS GG 1 CAPSULE. PO SCH ×2 (08:14→21:03)
[2020-06-18] MEDS: CETIRIZINE HCL 10 MG TABLET PO SCH (08:14)
[2020-06-18] MEDS: amLODIPine BESYLATE 5 MG TABLET PO SCH (08:14)
[2020-06-18] MEDS: POLYETHYLENE GLYCOL 3350 17 GM PACKET. PO SCH (08:16)
--- NOTE | 2020-06-18 08:21 | PN ---
DATE: SUBJECTIVE: The patient with COVID-19 pneumonia. The patient says he is feeling much better today. He is breathing somewhat better overall. He continues on IV antibiotic therapy and dexamethasone, azithromycin as well. Otherwise, he seems to be doing well. Put him on an MDI inhaler as well. OBJECTIVE: VITAL SIGNS: The patient's blood pressure 130/70, respiratory rate 20, pulse 80, afebrile, 92% on room air. GENERAL: The patient is alert and oriented. LUNGS: Diminished throughout, but basically clear. CARDIOVASCULAR: Regular sinus rhythm, S1, S2. ABDOMEN: Soft, nontender, protuberant. EXTREMITIES: No clubbing, cyanosis, nor edema. Basically, he is improved and will continue on present drug regimen and make further evaluation on him. IMPRESSION: COVID-19 pneumonia, spina bifida. He has bilateral shunts, hypokalemia. PLAN: Continue to monitor and make adjustments accordingly. RODY BENITES MD DR: HAYLEY/inocencia JOB#: [id number] / [id number]
[2020-06-18 11:03] VITALS: BP 151/78
[2020-06-18 15:00] VITALS: BP 129/79
[2020-06-18 19:51] VITALS: BP 117/76
[2020-06-18] MEDS: LOSARTAN 25 MG TABLET. PO SCH (21:03)
[2020-06-18 22:17] LABS: CREATININE 0.9 mg/dL (0.7-1.3); GFR 93.5
[2020-06-18 22:24] LABS: VANC TR 11.2 mcg/mL (10.0-20.0)
[2020-06-19] MEDS: DEXAMETHASONE SOD PHOS 4 MG/ML VIAL. IVP SCH ×4 (01:41→17:39)
[2020-06-19 06:13] VITALS: BP 121/77
[2020-06-19] MEDS: VANCOMYCIN 1.5 GM in IV NORMAL SALINE 500ML 500 ML IV SCH (06:16)
[2020-06-19 06:36] LABS: CALCIUM 8.1 mg/dL (8.5-10.1); CREATININE 0.8 mg/dL (0.7-1.3); GFR 107.1; POTASSIUM 3.5 mmol/L (3.5-5.1)
[2020-06-19] MEDS: PANTOPRAZOLE 40 MG TABLET. PO SCH (07:30)
[2020-06-19] MEDS: ENOXAPARIN 40 MG/0.4 ML SYRINGE. SQ SCH ×2 (08:52→22:28)
[2020-06-19] MEDS: ZINC SULFATE 220 MG CAPSULE. PO SCH (08:53)
[2020-06-19] MEDS: CHOLECALCIFEROL (VITAMIN D3) 1,000 UNIT TABLET PO SCH (08:53)
[2020-06-19] MEDS: BENZONATATE 100 MG CAPSULE. PO SCH ×3 (08:53→22:29)
[2020-06-19] MEDS: POLYETHYLENE GLYCOL 3350 17 GM PACKET. PO SCH (08:53)
[2020-06-19] MEDS: AZITHROMYCIN 250 MG TABLET. PO SCH (08:53)
[2020-06-19] MEDS: amLODIPine BESYLATE 5 MG TABLET PO SCH (08:53)
[2020-06-19] MEDS: LACTOBACILLUS RHAMNOSUS GG 1 CAPSULE. PO SCH ×2 (08:53→22:28)
[2020-06-19] MEDS: CETIRIZINE HCL 10 MG TABLET PO SCH (08:54)
[2020-06-19 11:55] VITALS: BP 112/74
--- NOTE | 2020-06-19 14:49 | PN ---
DATE: SUBJECTIVE: A 40-year-old gentleman with spina bifida and with sepsis and COVID-19 pneumonia, seems to be doing a little bit better today. He says he is feeling a little bit stronger handling the of his mother fairly well. OBJECTIVE: VITAL SIGNS: Blood pressure 130/80, respiratory rate 20, pulse 87, afebrile. GENERAL: The patient is alert and oriented. Speech is fluent and spontaneous. LUNGS: Diminished throughout, but basically clear. CARDIOVASCULAR: Regular sinus rhythm. ABDOMEN: Protuberant, soft, nontender. EXTREMITIES: No clubbing, cyanosis, nor edema. NEUROLOGIC: The patient remained basically stable and continues to make excellent progress with his recuperation. IMPRESSION: Sepsis, COVID-19, spina bifida, hypokalemia, electrolyte replacement. RODY BENITES MD DR: HAYLEY/inocencia JOB#: [id number] / [id number]
[2020-06-19 15:02] VITALS: BP 124/84
[2020-06-19] MEDS: VANCOMYCIN 2 GM in IV NORMAL SALINE 500ML 500 ML IV SCH ×2 (15:43→22:31)
[2020-06-19] MEDS: VANCOMYCIN PER PHARMACY MC PRN (18:10)
--- NOTE | 2020-06-19 18:11 | NUR ---
Pharmacy Vancomycin Dosing Note S:Consulted to monitor and dose vancomycin started 06/16/20. O:[address] is a 40 year old M with Pneumonia, . Height: 5 feet, 6 inches Weight: 95.2 kg [place] Body Weight: 63.80 Adjusted Body Weight: 76.36 Dosing Weight: Actual Other Antibiotics: LEVOFLOXACIN AND AZITHROMYCIN LABS: Last BUN: 13 Last Creatinine: 0.8 Creatinine Clearance: 151.59 Last WBC: 5.5 Last Procalcitonin: <0.10 Tmax (past 24 hours): Microbiology: I/O: 1180/1450 Drug Levels: Last Trough level: 11.2 on 06/18/20 at 2155 Last dose given 06/17/20 at 1106 Vancomycin Dosing: Loading Dose: 2000 mg x1 Dosing Weight: Actual Target Trough: 10-20 A: Based on: TROUGH P: 1. Change Vancomycin 2000 mg IV q8h 2. Follow up Trough level on NEEDED. 3. Pharmacy will continue to monitor, follow and adjust therapy as needed. ROSE MARIE KING, [facility], 06/19/20 [id number]
[2020-06-19 20:34] VITALS: BP 142/88
[2020-06-19] MEDS: LOSARTAN 25 MG TABLET. PO SCH (22:29)
[2020-06-19 23:33] VITALS: BP 136/83
[2020-06-20] MEDS: DEXAMETHASONE SOD PHOS 4 MG/ML VIAL. IVP SCH ×5 (00:07→23:53)
[2020-06-20 06:12] VITALS: BP 99/63
[2020-06-20] MEDS: PANTOPRAZOLE 40 MG TABLET. PO SCH (07:42)
[2020-06-20] MEDS: VANCOMYCIN 2 GM in IV NORMAL SALINE 500ML 500 ML IV SCH ×3 (07:42→23:00)
[2020-06-20] MEDS: LACTOBACILLUS RHAMNOSUS GG 1 CAPSULE. PO SCH ×2 (09:00→21:00)
[2020-06-20] MEDS: POLYETHYLENE GLYCOL 3350 17 GM PACKET. PO SCH (09:00)
[2020-06-20] MEDS: amLODIPine BESYLATE 5 MG TABLET PO SCH (09:00)
[2020-06-20] MEDS: AZITHROMYCIN 250 MG TABLET. PO SCH (09:38)
[2020-06-20] MEDS: ZINC SULFATE 220 MG CAPSULE. PO SCH (09:38)
[2020-06-20] MEDS: BENZONATATE 100 MG CAPSULE. PO SCH ×3 (09:38→21:00)
[2020-06-20] MEDS: CETIRIZINE HCL 10 MG TABLET PO SCH (09:39)
[2020-06-20] MEDS: CHOLECALCIFEROL (VITAMIN D3) 1,000 UNIT TABLET PO SCH (09:39)
[2020-06-20] MEDS: ENOXAPARIN 40 MG/0.4 ML SYRINGE. SQ SCH ×2 (09:40→21:01)
[2020-06-20 11:16] VITALS: BP 145/84
[2020-06-20 15:04] VITALS: BP 141/81
--- NOTE | 2020-06-20 19:31 | PN ---
DATE: SUBJECTIVE: The patient with COVID-19 pneumonia, sepsis, doing much better, breathing much easier. He says he feels a little bit stronger. We will continue with PT, OT. PHYSICAL EXAMINATION: VITAL SIGNS: His vital signs remain basically stable. He is only 91% on room air, 124/80, respiratory rate 18, pulse 82, 98 degrees. GENERAL: The patient is alert and oriented. LUNGS: Diminished, but clear than they have been. He continues to make good progress. EXTREMITIES: No clubbing, cyanosis or edema. NEUROLOGIC: Intact. ASSESSMENT AND PLAN: We will go ahead and continue to monitor the patient. PT, OT and make further assessment on him. Hopefully, ready for discharge. He would like to go home and not to a rehab facility. COVID-19 pneumonia, spina bifida, bilateral, shunts, hypokalemia. Plan as above. RODY BENITES MD DR: HAYLEY/inocencia JOB#: [id number] / [id number]
[2020-06-20 19:36] VITALS: BP 139/84
[2020-06-20] MEDS: LOSARTAN 25 MG TABLET. PO SCH (21:00)
[2020-06-20 23:50] VITALS: BP 150/91
[2020-06-21] MEDS: DEXAMETHASONE SOD PHOS 4 MG/ML VIAL. IVP SCH ×3 (06:00→16:56)
[2020-06-21 06:12] VITALS: BP 133/86
--- NOTE | 2020-06-21 06:17 | NUR ---
Pt resting comfortably in bed at change of shift, watching television. He denied pain. Pt went to sleep about 2330. Pt independently toileting and cares. Will continue to monitor.
[2020-06-21] MEDS: VANCOMYCIN 2 GM in IV NORMAL SALINE 500ML 500 ML IV SCH ×3 (07:18→23:09)
[2020-06-21] MEDS: PANTOPRAZOLE 40 MG TABLET. PO SCH (07:19)
[2020-06-21] MEDS: CETIRIZINE HCL 10 MG TABLET PO SCH (07:19)
[2020-06-21] MEDS: ENOXAPARIN 40 MG/0.4 ML SYRINGE. SQ SCH ×2 (07:19→20:20)
[2020-06-21] MEDS: LACTOBACILLUS RHAMNOSUS GG 1 CAPSULE. PO SCH ×2 (07:19→19:50)
[2020-06-21] MEDS: CHOLECALCIFEROL (VITAMIN D3) 1,000 UNIT TABLET PO SCH (07:19)
[2020-06-21] MEDS: POLYETHYLENE GLYCOL 3350 17 GM PACKET. PO SCH (07:20)
[2020-06-21] MEDS: BENZONATATE 100 MG CAPSULE. PO SCH ×3 (07:20→19:50)
[2020-06-21] MEDS: amLODIPine BESYLATE 5 MG TABLET PO SCH (07:20)
[2020-06-21] MEDS: ZINC SULFATE 220 MG CAPSULE. PO SCH (07:20)
[2020-06-21] MEDS: AZITHROMYCIN 250 MG TABLET. PO SCH (07:20)
[2020-06-21 08:16] LABS: VANC TR 16.8 mcg/mL (10.0-20.0)
[2020-06-21 08:50] LABS: BASO % 0 % (0-3); EOS % 0 % (0-3); HEMATOCRIT 43.1 % (39.0-53.0); HEMOGLOBIN 14.5 g/dL (13.0-17.5); LYMPH # 1.1 x10^3/uL (1.0-4.8); LYMPH % 7 % (24-48); MEAN CORPUSCULAR HEMOGLOBIN 30 pg (25-35); MEAN CORPUSCULAR HGB CONC 34 g/dL (31-37); MEAN CORPUSCULAR VOLUME 90 fL (79-100); MONO % 7 % (0-9); NEUT # 13.2 x10^3uL (1.8-7.7); NEUT % 86 % (31-73); PLATELET COUNT 356 x10^3/uL (140-400); RED BLOOD COUNT 4.81 x10^6/uL (4.30-5.70); RED CELL DISTRIBUTION WIDTH 13.4 % (11.5-14.5); WHITE BLOOD COUNT 15.3 x10^3/uL (4.0-11.0)
[2020-06-21 08:56] LABS: CALCIUM 8.5 mg/dL (8.5-10.1); CREATININE 0.9 mg/dL (0.7-1.3); GFR 93.5; POTASSIUM 3.7 mmol/L (3.5-5.1)
--- NOTE | 2020-06-21 09:04 | NUR ---
ASSUMED CARE OF PATIENT FROM ISABEL RN, PATIENT IS RESTING IN ROOM AT TIME OF ASSESSMENT AND MEDIATION ADMINISTRATION PATIENT IS COMPLIANT WITH MEDICATIONS WHOLE WITH WATER. PATIENT REPORTS FEELING BETTER. PATIENT'S VANC TROUGH DRAWN AND NEW 20 GIV STARTED IN L FOREARM. PATIENT IS RESTING IN BED AT THIS TIME. WILL CONTINUE TO MONITOR.
[2020-06-21 11:45] VITALS: BP 107/71
--- NOTE | 2020-06-21 13:30 | PN ---
DATE: SUBJECTIVE: An 84-year-old gentleman in with COVID-19 pneumonia and the like. The patient is doing somewhat better, still fairly weak, but making progress slow, but sure and he is continued with the medications and the like. OBJECTIVE: GENERAL: The patient says he is feeling stronger. He has no major complaints. VITAL SIGNS: Blood pressure 130/80, respiratory rate 16, pulse 80, afebrile. HEENT: The patient's head was atraumatic, normocephalic. Eyes: PERRLA without jaundice. Mouth and throat: Normal. NECK: Supple. LUNGS: Diminished primarily, but improved. CARDIOVASCULAR: Regular sinus rhythm, S1, S2. ABDOMEN: Soft, nontender, no rebound or guarding. Positive bowel sounds, no hepatosplenomegaly was noted. The patient continues to make good progress overall and will be monitored. Continue with antibiotics and aggressive therapy. May repeat chest x-ray for continued resolution of his pneumonia. IMPRESSION: Therefore, sepsis, COVID-19 pneumonia, hypokalemia, bilateral cerebral shunts and spina bifida. RODY BENITES MD DR: HAYLEY/inocencia JOB#: [id number] / [id number]
[2020-06-21 16:14] VITALS: BP 120/78
[2020-06-21] MEDS: LOPERAMIDE 2 MG CAPSULE PO PRN (16:56)
[2020-06-21 19:00] VITALS: BP 127/79
[2020-06-21] MEDS: LOSARTAN 25 MG TABLET. PO SCH (20:20)
[2020-06-21 23:41] VITALS: BP 129/81
[2020-06-22] MEDS: LOPERAMIDE 2 MG CAPSULE PO PRN ×2 (00:58→06:06)
--- NOTE | 2020-06-22 05:22 | NUR ---
PT WAS SITTING AT BEDSIDE UPON ASSESSMENT AND MED PASS. PT IS A&OX4 AND ABLE TO EXPRESS ANY CONCERNS HER HAS. PT IS UP TOLERATED TO TOILET. PT HAS HAD MULTIPLE LOOSE BOWEL MOVEMENTS THIS EVENING. PT IS CURRENTLY SLEEPING IN BED. WILL CONTINUE TO MONITOR.
[2020-06-22 05:38] VITALS: BP 123/84
[2020-06-22] MEDS: VANCOMYCIN 2 GM in IV NORMAL SALINE 500ML 500 ML IV SCH (06:06)
[2020-06-22] MEDS: PANTOPRAZOLE 40 MG TABLET. PO SCH (08:21)
[2020-06-22] MEDS: CETIRIZINE HCL 10 MG TABLET PO SCH (08:21)
[2020-06-22] MEDS: CHOLECALCIFEROL (VITAMIN D3) 1,000 UNIT TABLET PO SCH (08:21)
[2020-06-22] MEDS: AZITHROMYCIN 250 MG TABLET. PO SCH (08:21)
[2020-06-22] MEDS: LACTOBACILLUS RHAMNOSUS GG 1 CAPSULE. PO SCH (08:21)
[2020-06-22] MEDS: amLODIPine BESYLATE 5 MG TABLET PO SCH (08:22)
[2020-06-22] MEDS: ENOXAPARIN 40 MG/0.4 ML SYRINGE. SQ SCH (08:23)
[2020-06-22] MEDS: ZINC SULFATE 220 MG CAPSULE. PO SCH (08:45)
[2020-06-22] MEDS: POLYETHYLENE GLYCOL 3350 17 GM PACKET. PO SCH (08:45)
[2020-06-22] MEDS: BENZONATATE 100 MG CAPSULE. PO SCH ×2 (08:45→14:00)
[2020-06-22] MEDS ORDERED: DEXAMETHASONE SOD PHOS 4 MG/ML VIAL. IVP SCH (09:00)
[2020-06-22] MEDS ORDERED: ACET325T9 PO (10:10)
[2020-06-22] MEDS ORDERED: ALBU2.5V8 IH (10:12)
[2020-06-22] MEDS ORDERED: BENZ100C PO (10:12)
[2020-06-22] MEDS ORDERED: VITA1TAB31 PO (10:13)
[2020-06-22] MEDS ORDERED: DEXA4TAB PO ×3 (10:15→10:16)
[2020-06-22] MEDS ORDERED: ONDA4TAB12 PO (10:17)
[2020-06-22 10:18] VITALS: BP 124/82
[2020-06-22] MEDS ORDERED: PANT40TA6 PO (10:18)
[2020-06-22] MEDS ORDERED: POLY2500 PO (10:19)
[2020-06-22] MEDS ORDERED: ZINC220T3 PO (10:19)
[2020-06-22] MEDS ORDERED: AMLO-186 PO (10:20)
[2020-06-22] MEDS ORDERED: FAMO-63 PO (10:21)
--- NOTE | 2020-06-22 10:49 | DISCH ---
HOME HEALTH DISCHARGE/MEDS DISCHARGE INFORMATION: Discharge Date: Jun 22, 2020 Final Diagnosis: Problems Medical Problems: (1) Suspected COVID-19 virus infection Status: Acute Condition on Discharge: Stable CODE STATUS: Code Status: Full HOME HEALTH: Face to Face: I certify this patient is under my care and that I, or a nurse practitioner or physician's funeral assistant working with me, had a face to face encounter that meets the physician face to face encounter requirements with this patient on 06/22/2020. Medical Condition(s): Pneumonia [facility] For: Assess Cardiopulm Status, Assess & Educate Safety, Assess/Skilled Observatio, Medication Management Physical Therapy For: Evalulation/Treatment Occupational Therapy For: Evaluation/Treatment POST DISCHARGE ORDERS: Activity Instructions for Disc: Activity as tolerated Weight Bearing Status after Di: As tolerated DIET AFTER DISCHARGE: Regular CERTIFICATION STATEMENT: Certification Statement: Based on the above finding, I certify that this patient is confined to the home and needs intermittent prison care, physical therapy and/or speech therapy, or continues to need occupational therapy.~ This patient is under my care, and I have initiated the establishment of the plan of care.~ This patient will be followed by myself or a community physician who will periodically review the plan of care. DISCHARGE MEDICATIONS: Home Meds Reported Medications Famotidine (PEPCID) 20 Mg Tablet, 40 MG PO HS for REFLUX, TAB 06/22/20 Amlodipine Besylate (AMLODIPINE BESYLATE) 5 Mg Tablet, 1 TAB PO DAILY for BLOOD PRESSURE, #30 TAB 5 Refills 06/22/20 Zinc Sulfate (ZINC SULFATE) 220 Mg Tablet, 220 MG PO BID for SUPPLEMENT, TAB 06/22/20 Polyethylene Glycol 3350 (POLYETHYLENE GLYCOL 3350) 2,500 Gm Powder, 17 GM PO PRN DAILY PRN for CONSTIPATION for 30 Days, #527 GM 0 Refills 06/22/20 Pantoprazole Sodium (PANTOPRAZOLE SODIUM) 40 Mg Tablet.dr, 40 MG PO DAILY for REFLUX, TAB 06/22/20 Ondansetron (ONDANSETRON ODT) 4 Mg Tab.rapdis, 4 MG PO PRN Q8HRS PRN for NAUSEA/VOMITING, TAB 06/22/20 Dexamethasone (DEXAMETHASONE) 4 Mg Tablet, 4 MG PO QODAY for IMFLAMMATION for 4 Days, #2 TAB 06/22/20 Dexamethasone (DEXAMETHASONE) 4 Mg Tablet, 4 MG PO DAILY for IMFLAMMATION, #4 TAB 06/22/20 Dexamethasone (DEXAMETHASONE) 4 Mg Tablet, 4 MG PO BID for INFLAMMATION, #8 TAB 06/22/20 Vitamin D3/Vitamin K2 (D3 + K2 DOTS 1,000 UNITS TAB) 1 Each Tab.rapdis, 1 TAB PO DAILY for SUPPLEMENT for 30 Days, #30 TAB 0 Refills 06/22/20 Benzonatate (TESSALON PERLE) 100 Mg Capsule, 200 MG PO TID for COUGH, CAP 06/22/20 Albuterol Sulfate (PROAIR HFA INHALER) 8.5 Gm Hfa.aer.ad, 2 PUFF IH PRN Q2-4HRS PRN for wheezing for 21 Days, #1 INHALER 0 Refills 06/22/20 Acetaminophen (TYLENOL) 325 Mg Tablet, 650 MG PO PRN Q4HRS PRN for PAIN, TAB 06/22/20 Diltiazem Hcl (DILTIAZEM 24HR CD) 120 Mg Cap.er.24h, 1 CAP PO DAILY for . 06/12/20 Losartan Potassium (LOSARTAN POTASSIUM ) 25 Mg Tablet, 1 TAB PO QHS for HTN 06/12/20 Cetirizine Hcl (CETIRIZINE HCL) 10 Mg Tablet, 10 MG PO DAILY for Allergy symptoms LAST DOSE GIVEN: DATE: TIME: NEXT DOSE DUE: DATE: TIME: 11/15/19 RODY BENITES MD Jun 22, 2020 10:49
--- NOTE | 2020-06-22 16:05 | NUR ---
DISCHARGE NOTE-Pt escorted to vehicle in for discharge. All possessions sent with him, though he is still missing his house keys. He is uncertain if they came to the hospital with him or not.
--- NOTE | 2020-06-22 21:16 | PN ---
DATE: SUBJECTIVE: Sepsis, COVID-19 pneumonia. In spite of this, the patient is resting fairly comfortably. He says he is feeling a little bit stronger day by day, still having some coughing spasms and little bit of loose stools. OBJECTIVE: VITAL SIGNS: Blood pressure 127/80, respiratory rate 18, pulse 80, afebrile. GENERAL: The patient is alert and oriented. LUNGS: Diminished, but basically clear. CARDIOVASCULAR: Stable. ABDOMEN: Soft, nontender, no rebound or guarding. Positive bowel sounds. LABORATORY DATA: The patient's white count has gone up to 15,000. As noted, he has been afebrile for the last several days, probably the results of the Decadron, which will be tapered down. Otherwise, he is resting fairly comfortably and we will continue to monitor him accordingly. IMPRESSION: Therefore, COVID-19 pneumonia, sepsis, hypokalemia, spina bifida, bilateral cerebral shunts and continue with plan as above. RODY BENITES MD DR: HAYLEY/inocencia JOB#: [id number] / [id number]
--- NOTE | 2020-06-25 21:14 | DS ---
DATE OF DISCHARGE: 06/22/2020 HOSPITAL COURSE: A 40-year-old gentleman with a history of spina bifida. The patient was discharged home. He had been having severe problems with nausea, vomiting, keeping anything down. He was also having trouble breathing. He was found to have COVID-19 as well. Apparently his mother just . He has a great deal of shock as well as in grief grieving over the loss of his mother. The patient was placed on remdesivir, Decadron, zinc in the usual fashions. He had some diarrhea. His C. diff was negative. His urine showed concentration. Chemistries were just showing ups and downs of potassium and the like. Blood sugars are being monitored, being on the Decadron. Otherwise, the patient's hemoglobin and hematocrit 14 and 43. The patient made good progress during the rest of his hospitalization and remained basically stable, but still in a grief noted for him to get some type of counseling over the loss of his mother. His stepfather is also in the hospital with COVID, but has recovered fortunately from that situation. The patient has some underlying handicaps of spina bifida as well as he has cerebral shunts to prevent buildup of fluids of hydrocephalus of course. The patient said he thought he could make it at home and as a result of that he was discharged home for followup as an outpatient. He was given my phone number to call me if he needs anything. IMPRESSION: COVID-19 pneumonia, spina bifida, severe nausea, vomiting, hypokalemia, generalized weakness, abdominal pain. The patient will be on a regular diet, decreased activity having him return to the clinic for followup and make further evaluation at that time. RODY BENITES MD DR: HAYLEY/inocencia JOB#: [id number] / [id number]
== END 2020-06-22 16:00 | disposition home health service (06) | DRG 871 ==
LOC: ER 11:40 → 1 SOUTH 16:12
PROVIDERS: ADMIT Family Medicine; ATTEND Family Medicine
DX: A41.89 Other specified sepsis (principal); U07.1 COVID-19; J12.89 Other viral pneumonia; E87.6 Hypokalemia; E86.0 Dehydration; H91.91 Unspecified hearing loss, right ear; Q05.9 Spina bifida, unspecified; Z83.3 Family history of diabetes mellitus; Z95.0 Presence of cardiac pacemaker; Z98.2 Presence of cerebrospinal fluid drainage device; F41.9 Anxiety disorder, unspecified; K21.9 Gastro-esophageal reflux disease without esophagitis; M19.90 Unspecified osteoarthritis, unspecified site; Z87.440 Personal history of urinary (tract) infections; Z87.01 Personal history of pneumonia (recurrent); Z79.899 Other long term (current) drug therapy; Z88.8 Allergy status to other drugs, medicaments and biological substances; Z91.040 Latex allergy status; Z90.49 Acquired absence of other specified parts of digestive tract
CPT/HCPCS: 36415; 71045; 74176; 76700; 80048; 80053; 80076; 80202; 81001; 82565; 82728; 84145; 85025; 87493; 96361; 96374; 99285; J0456; J1100; J1650; J1956; J2405; J3370; J7030; J7040; J7613; Q0162

== ENCOUNTER 2021-11-09 00:54 | Emergency (ER) | payer MEDICARE, OTHER ==
[~2021-11-09] VITALS: Ht 167.6 cm; Wt 102.0 kg
[~2021-11-09 00:54] MED LIST changes: +ALBU2.5V8 IH; +BENZ100C PO; +DEXA4TAB PO; +DILT120C99 PO; +FAMO-63 PO; +LOSA25TA11 PO; +ONDA4TAB12 PO; +POLY2500 PO; +VITA1TAB31 PO; +ZINC220T3 PO
--- NOTE | 2021-11-09 01:36 | PHYS DOC ---
Past History Past Medical History: Anxiety, Arthritis, Bronchitis, Heart Disease, Pneumonia, UTI, Other Additional Past Medical Histor: spina bifida, chiari malformation, meiners diease, H1 N 1, respiratory fail Past Surgical History: Pacemaker, Other Additional Past Surgical Histo: [employer] Shunt on bilat skull x 27, Alcohol Use: None Drug Use: None General Adult EDM: Chief Complaint: BLOOD IN URINE HPI: HPI: 41-year-old male presents with hematuria. The patient has spina bifida. He caths himself around 10 PM without difficulty. After the [facility] change in Vaseline, the patient cath himself again around 12:30 AM. At that time he had blood in his depends as well as when he cathed himself. It was bright red. He had additional blood in the toilet and urine a second depends arrival to the emergency room. He cath himself again for sample in the emergency room with a couple of clots but no rosie blood. Patient denies significant pain. He has decreased sensation below the waist and states his lower abdomen feels like it has a mild fullness. He has never had hematuria like this before. He has had small amounts with catheterizing himself in the past but this is more than that. Review of Systems: Review of Systems: Constitutional: Denies fever or chills Eyes: Denies change in visual acuity HENT: Denies nasal congestion or sore throat Respiratory: Denies cough or shortness of breath Cardiovascular: Denies chest pain or edema GI: Denies abdominal pain, nausea, vomiting, bloody stools or diarrhea : Hematuria Musculoskeletal: Denies back pain or joint pain Integument: Denies rash Neurologic: Denies headache, focal weakness or sensory changes Endocrine: Denies polyuria or polydipsia Lymphatic: Denies swollen glands Psychiatric: Denies depression or anxiety Allergies: Allergies: Allergies Coded Allergies Type Severity Reaction Last Updated Verified amoxicillin Allergy Intermediate 11/20/18 Yes cefaclor Allergy Intermediate 11/20/18 Yes latex Allergy Intermediate 11/20/18 Yes morphine Allergy Unknown Rash 11/14/19 Yes Physical Exam: PE: Constitutional: Well developed, well nourished, no acute distress, non-toxic appearance. [] HENT: Normocephalic, atraumatic, bilateral external ears normal, oropharynx moist, no oral exudates, nose normal. [] Eyes: PERRLA, EOMI, conjunctiva normal, no discharge. [] Neck: Normal range of motion, no tenderness, supple, no stridor. [] Cardiovascular: Heart rate regular rhythm, no murmur [] Lungs & Thorax: Bilateral breath sounds clear to auscultation [] Abdomen: Bowel sounds normal, soft, no tenderness, no masses, no pulsatile masses. [] Skin: Warm, dry, no erythema, no rash. [] Back: No tenderness, no CVA tenderness. [] Extremities: No tenderness, no cyanosis, no clubbing, ROM intact, no edema. [] Neurologic: Alert and oriented X 3, normal motor function, normal sensory function, no focal deficits noted. [] Psychologic: Affect normal, judgement normal, mood normal. [] Current Patient Data: Vital Signs: Vital Signs Date Time Temp Pulse Resp B/P (MAP) Pulse Ox O2 Delivery O2 Flow Rate FiO2 11/09/21 01:02 98.2 105 16 154/105 (121) 97 Room Air EKG: EKG: [] Radiology/Procedures: Radiology/Procedures: [] Heart Score: C/O Chest Pain: N/A Risk Factors: Risk Factors: DM, Current or recent (<one month) smoker, HTN, HLP, family history of CAD, obesity. Risk Scores: Score 0 - 3: 2.5% MACE over next 6 weeks - Discharge Home Score 4 - 6: 20.3% MACE over next 6 weeks - Admit for Clinical Observation Score 7 - 10: 72.7% MACE over next 6 weeks - Early Invasive Strategies Course & Med Decision Making: Course & Med Decision Making Pertinent Labs and Imaging studies reviewed. (See chart for details) The patient's urinalysis is significant for blood, but not infection. Inspection of the penis does not show any obvious trauma at the urethral meatus. There were a few drops of blood in the patient's brief. This is likely minor urethral trauma or bleed in the bladder. It should be self-limiting and improved without further intervention. If the patient begins to have significant bleeding from his penis or other symptoms of anemia, he should return to the emergency room. He will follow-up with his primary physician later today to let him know about this episode. He is stable for discharge at this time. [] Dragon Disclaimer: Dragjustin Disclaimer: This electronic medical record was generated, in whole or in part, using a voice recognition dictation system. Departure Departure: Impression: Primary Impression: Hematuria Disposition: HOME / SELF CARE / HOMELESS Condition: STABLE Referrals: RODY BENITES MD (PCP) Patient Instructions: Hematuria, Adult NEENA NOYOLA DO Nov 09, 2021 01:36
[2021-11-09 01:53] LABS: BACTERIA,URINE 0 /HPF (0-FEW); CLARITY,URINE CLEAR; COLOR,URINE YELLOW; GLUCOSE,URINE NEG (NEG); NITRITE,URINE NEG (NEG); SQUAMOUS EPITHELIAL CELL,UR OCC /LPF; UROBILINOGEN,URINE 0.2 mg/dL (0.2 mg/dL)
[2021-11-09 03:02] VITALS: BP 139/83
== END 2021-11-09 03:06 | disposition home or self-care (01) ==
LOC: ER 00:54
DX: R31.9 Hematuria, unspecified (principal); M19.90 Unspecified osteoarthritis, unspecified site; Z87.440 Personal history of urinary (tract) infections; Z95.0 Presence of cardiac pacemaker; Z88.1 Allergy status to other antibiotic agents; Z91.040 Latex allergy status; Z88.5 Allergy status to narcotic agent
CPT/HCPCS: 81001; 99283; P9612